=== PATIENT | female | born 1955 | race Caucasian/White ===

== ENCOUNTER 2018-08-11 18:17 | Emergency (ER) | payer MEDICAID, OTHER ==
[~2018-08-11] VITALS: Ht 160 cm; Wt 59.0 kg
[2018-08-11] MEDS ORDERED: ACETAMINOPHEN 500 MG TAB PO ONE (18:45)
[2018-08-11] MEDS ORDERED: KETOROLAC TROMETH 30 MG/ML 1ML VIAL IV ONE (19:00)
[2018-08-11] MEDS ORDERED: methylPREDNISolone SOD SUCC 125 MG/2 ML VL IV ONE (19:00)
[2018-08-11] MEDS ORDERED: diphenhdrAMINE HCL 50 MG/1 ML VL IV ONE (19:00)
[2018-08-11] MEDS ORDERED: DexAMETHasone SOD PHOS 10MG/1ML VIAL INJ IM ONE (20:15)
[2018-08-11 20:50] LABS: Basophils # (auto) 0 uL; Basophils % (auto) 0.3 % (0.0-2.0); Eosinophils # (auto) 0 uL; Eosinophils % (auto) 0.3 % (0.0-7.0); Hematocrit 40.2 % (36.0-46.0); Hemoglobin 13.1 g/dL (12.2-16.2); Lymphocytes # (auto) 1.4 uL; Lymphocytes % (auto) 10.3 % (10.0-50.0); Mean Corpuscular Hgb Conc. 32.6 g/dL (32.0-36.0); Mean Corpuscular Volume 88.7 fL (80.0-100.0); Monocytes # (auto) 0.6 uL; Monocytes % (auto) 4.3 % (0.0-12.0); Neutrophils # (auto) 11.7 uL; Neutrophils % (auto) 84.8 % (37.0-80.0); Nucleated Red Blood Cells % 0.1 %; Platelet Count (auto) 235 10^3/uL (140-450); Red Blood Cells 4.53 10^6/uL (4.0-5.20); Red Cell Distribution Width 14.8 % (11.8-14.3); White Blood Cell 13.7 10^3/uL (4.4-10.8)
[2018-08-11 20:58] VITALS: BP 140/81
[2018-08-11 21:06] LABS: Alanine Aminotransferase 17 U/L (13-56); Albumin 3.4 g/dL (3.4-5.0); Anion Gap 8 (5-15); Aspartate Aminotransferase 16 U/L (15-37); BUN/Creatinine Ratio 10.7; Blood Urea Nitrogen 9 mg/dL (7-18); Calcium 8.8 mg/dL (8.5-10.1); Carbon Dioxide 25 mmol/L (21-32); Chloride 101 mmol/L (98-107); GFR African American 89 mL/min; GFR Non-African American 74 mL/min; Glucose 104 mg/dL (74-106); Sodium 134 mmol/L (136-145)
[2018-08-11 21:12] LABS: Alkaline Phosphatase 130 U/L (45-117); Bilirubin, Total 0.5 mg/dL (0.2-1.0); Total Protein 7.1 g/dL (6.4-8.2)
== END 2018-08-11 21:13 | disposition home or self-care (01) ==
LOC: EDBD 18:17 → ER 18:21
DX: T78.40XA Allergy, unspecified, initial encounter (principal); R51 Headache; X58.XXXA Exposure to other specified factors, initial encounter
CPT/HCPCS: 36415; 80053; 83605; 84484; 85025; 87040; 94761; 96372; 96374; 96375; 99283; J1100; J1200; J1885; J2930

== ENCOUNTER 2023-07-21 14:16 | Emergency (ER) | payer OTHER ==
[2023-07-21 14:55] VITALS: PULSE 78; RESP 12; O2SAT 95
[2023-07-21 15:30] VITALS: BP 115/71; PULSE 62; RESP 11; O2SAT 95
== END 2023-07-21 15:46 | disposition left against medical advice (07) ==
LOC: EDBD 14:16 → ER 14:16
DX: R53.1 Weakness (principal); F17.210 Nicotine dependence, cigarettes, uncomplicated; W18.39XA Other fall on same level, initial encounter; Y93.89 Activity, other specified; Y92.89 Other specified places as the place of occurrence of the external cause; Y99.8 Other external cause status
CPT/HCPCS: 70450; 93005

== ENCOUNTER 2023-11-06 00:17 | Emergency (ER) | payer OTHER ==
[~2023-11-06] VITALS: Ht 167.6 cm; Wt 63.1 kg
[2023-11-06 01:15] VITALS: PULSE 88; RESP 16; O2SAT 98
[2023-11-06] MEDS: MORPHINE SULFATE 4 MG/ML SYR/VIAL IV ONE (01:56)
[2023-11-06] MEDS: ONDANSETRON HCL 4 MG/2 ML VIAL IV ONE (01:57)
[2023-11-06] MEDS: KETAMINE 50mg/ML 10ml Vial (500mg/10ml) IV ONE (03:12)
[2023-11-06 03:30] VITALS: BP 172/100; PULSE 96; RESP 13; TEMP 98.4; O2SAT 99
[2023-11-06] MEDS ORDERED: ACET-1304 PO (03:56)
[2023-11-06] MEDS ORDERED: IBUP-1456 PO (03:56)
== END 2023-11-06 04:49 | disposition home or self-care (01) ==
LOC: ER 00:17 → EDBD 00:17 → ER 04:49
DX: S43.015A Anterior dislocation of left humerus, initial encounter (principal); F17.210 Nicotine dependence, cigarettes, uncomplicated; F12.10 Cannabis abuse, uncomplicated; Z85.9 Personal history of malignant neoplasm, unspecified; W01.0XXA Fall on same level from slipping, tripping and stumbling without subsequent striking against object, initial encounter; Y93.89 Activity, other specified; Y92.89 Other specified places as the place of occurrence of the external cause; Y99.8 Other external cause status
CPT/HCPCS: 23650; 73030; 96374; 96375; 99285; J2270; J2405; 96376

== ENCOUNTER 2023-11-12 01:50 | Emergency (ER) | payer OTHER ==
[~2023-11-12] VITALS: Ht 157.5 cm; Wt 80.0 kg
[~2023-11-12 01:50] MED LIST: ACET-1304 PO; IBUP-1456 PO
[2023-11-12 02:05] VITALS: PULSE 76; RESP 22; O2SAT 97
[2023-11-12] MEDS: MORPHINE SULFATE 4 MG/ML SYR/VIAL IV ONE ×2 (02:32→04:33)
[2023-11-12] MEDS: ONDANSETRON HCL 4 MG/2 ML VIAL IV ONE (02:32)
[2023-11-12] MEDS: ETOMIDATE (2MG/ML) 20ML VIAL IV ONE (05:17)
[2023-11-12 06:00] VITALS: BP 135/86; PULSE 75; RESP 12; O2SAT 94
== END 2023-11-12 07:11 | disposition home or self-care (01) ==
LOC: ER 01:50 → EDBD 01:50 → ER 07:11
DX: M24.412 Recurrent dislocation, left shoulder (principal); F17.210 Nicotine dependence, cigarettes, uncomplicated; F15.90 Other stimulant use, unspecified, uncomplicated; Z85.9 Personal history of malignant neoplasm, unspecified; Z79.899 Other long term (current) drug therapy
CPT/HCPCS: 23650; 73030; 96374; 99152; 99285; J2270; J2405

== ENCOUNTER 2025-05-01 20:15 | Inpatient (IN) | payer MEDICARE, OTHER ==
[~2025-05-01] VITALS: Ht 157.5 cm; Wt 69.1 kg
--- NOTE | 2025-05-01 20:50 | ED.PDOC ---
History of Present Illness HPI Comments 69-year-old female who is brought in by ambulance from private residence for chief complaint of altered mental status and cold exposure. Per EMS personnel report, patient was found outside her trailer altered on the floor, this evening. Initial temperature of 93.9 F. initial blood glucose of 131. Initial systolic blood pressure of 140. Patient was found in AFib RVR at a rate between 140/50 range. Patient is placed on non-rebreather. Further history is limited, due to patient's clinical presentation and absence of family/converting technician historians. REVIEW OF SYSTEMS: General: No fever, no chills, or fatigue HEENT: No sore throat, no earache, no congestion, no neck pain. Cardiac: No chest pain. No palpitations. Lungs: No shortness of breath, no cough. GI: No nausea, no vomiting, no diarrhea, no constipation, no abdominal pain : No dysuria, frequency, or urgency. No hematuria. Musculoskeletal: No joint pain , no joint swelling, no extremity edema. Skin: No rash, no itching. Neuro: Altered mental status (And as stated in HPI) PHYSICAL EXAM: General: Awake, alert and oriented. No acute distress. Skin: Skin cool to touch, dry and intact. Appropriate color for ethnicity. HEENT: The head is normocephalic and atraumatic. Conjunctivae are clear without exudates or hemorrhage. Sclera is non-icteric. Eyelids are normal in appearance without swelling or lesions. Oral mucosa is pink and moist Neck: The neck is supple with normal range of motion. No JVD. Cardiac: Rapid heart rate but irregular rhythm. No murmurs, gallops, or rubs are auscultated. Respiratory: No signs of respiratory distress. Lung sounds are clear in all lobes bilaterally without rales, rhonchi, or wheezes. Abdominal: Abdomen is soft, non-tender without distention, guarding or rigidity. Bowel sounds are present and normoactive in all four quadrants. Extremities: Lower extremities without edema. Neurological: Patient is lethargic, oriented to person, follows commands, and moving all 4 extremities spontaneously Chief Complaint: Cold Exposure Time Seen by MD: 20:39 Primary Care Provider: UNK Reviewed Notes: Nurses Notes, Laboratory Courier Notes, Medications, Allergies Allergies: Coded Allergies: NO KNOWN ALLERGIES (Unverified , 08/11/18) Home Meds Active Scripts Ibuprofen (Ibuprofen) 800 Mg Tab, 1 TAB PO Q8HP PRN, #30 TAB Prov:MIGUELINA SELF MD 11/06/23 Acetaminophen (Tylenol Extra Strength) 500 Mg Tab, 1000 MG PO Q6HP PRN, #30 TAB Prov:MIGUELINA SELF MD 11/06/23 Information Source: Emergency Med Personnel Mode of Arrival: EMS Severity: Moderate Timing: Hours Duration: Since onset Prehospital treatment: 12 Lead EKG, Accucheck, Parts Department Manager Past Medical History PAST MEDICAL HISTORY: Cancer Past Medical History (Other): Osteoporosis Surgical History: Surgical History (Other): Splenectomy, left hip replacement HARDWARE DEVELOPER History: Denies all HARDWARE DEVELOPER Hx Family History Family History: Unknown Social History Smoker: Cigarettes Alcohol: Occasionally Drugs: Marijuana Lives In: Home Was a procedure done? Was a procedure done?: No Differential Dx Considerations may include: Differential diagnosis considered includes but not limited to intracranial hemorrhage, stroke, head injury, seizure, metabolic disturbance, electrolyte imbalance, infection, substance intoxication, cold exposure, hypothermia, ps ychiatric cause, other systemic illness, other X-Ray, Labs, Meds, VS Vital Signs Date Time Temp Pulse Resp B/P (MAP) Pulse Ox O2 Delivery O2 Flow Rate FiO2 05/02/25 00:24 184/121 05/02/25 00:00 98.1 104 13 164/107 (126) 98 98.1 05/01/25 22:00 95.2 92 26 171/111 (131) 98 95.2 05/01/25 20:29 143 05/01/25 20:25 93.4 133 23 105/78 (87) 97 93.4 05/01/25 20:15 16 100 Non-Rebreather 10 N/A 05/01/25 20:15 94.0 138 16 144/67 100 94.0 Lab Test 05/02/25 00:17 05/01/25 22:15 05/01/25 22:01 05/01/25 21:55 Range/Units Troponin I High Sensitivity 81 *H 59 *H </=34 ng/L Influenza Type A Antigen Negative Negative Influenza Type B Antigen Negative Negative SARS-CoV-2 Antigen (Rapid) Negative NEGATIVE Urine Color Colorless Yellow Urine Clarity Clear Clear Urine pH 6.5 5.0-9.0 Urine Specific [place] 1.008 1.001-1.035 Urine Protein Trace H Negative Urine Ketones Negative Negative Urine Blood 2+ H Negative /uL Urine Nitrite Negative Negative Urine Bilirubin Negative Negative Urine Urobilinogen Normal Negative mg/dL Urine Leukocyte Esterase Negative Negative /uL Urine RBC 1 0 - 4 /hpf Urine Microscopic WBC 1 0-5 /HPF Urine Squamous Epithelial Cells Few <5 /hpf Urine Bacteria Few H None Seen /hpf Urine Glucose 2+ H Normal mg/dL Urine Opiates Screen Neg NEGATIVE Urine Fentanyl Screen Pos NEGATIVE Urine Barbiturates Screen Neg NEGATIVE Urine Phencyclidine Screen Neg NEGATIVE Urine Amphetamines Screen Pos NEGATIVE Urine Benzodiazepines Screen Neg NEGATIVE Urine Cocaine Screen Neg NEGATIVE Urine Cannabinoids Screen Neg NEGATIVE Test 05/01/25 21:10 05/01/25 20:45 Range/Units White Blood Count 13.0 H 4.4-10.8 10^3/uL Red Blood Count 4.67 4.0-5.20 10^6/uL Hemoglobin 13.0 12.2-16.2 g/dL Hematocrit 40.8 36.0-46.0 % Mean Corpuscular Volume 87.3 80.0-100.0 fL Mean Corpuscular Hemoglobin 27.9 L 28.0-32.0 pg Mean Corpuscular Hemoglobin Concent 32.0 32.0-36.0 g/dL Red Cell Distribution Width 16.0 H 11.8-14.3 % Platelet Count 238 140-450 10^3/uL Mean Platelet Volume 9.4 6.9-10.8 fL Neutrophils (%) (Auto) 85.5 H 37.0-80.0 % Lymphocytes (%) (Auto) 9.3 L 10.0-50.0 % Monocytes (%) (Auto) 4.5 0.0-12.0 % Eosinophils (%) (Auto) 0.5 0.0-7.0 % Basophils (%) (Auto) 0.2 0.0-2.0 % Neutrophils # (Auto) 11.1 H 1.6-8.6 10 ^3/uL Lymphocytes # (Auto) 1.2 0.4-5.4 10 ^3/uL Monocytes # (Auto) 0.6 0-1.3 10 ^3/uL Eosinophils # (Auto) 0.1 0-0.8 10 ^3/uL Basophils # (Auto) 0 0-0.2 10 ^3/uL Nucleated Red Blood Cells 0.0 % Sodium Level 142 136-145 mmol/L Potassium Level 3.6 3.5-5.1 mmol/L Chloride Level 106 98-107 mmol/L Carbon Dioxide Level 25 20-31 mmol/L Anion Gap 11 5-15 Blood Urea Nitrogen 16 9-23 mg/dL Creatinine 1.10 H 0.550-1.02 mg/dL Glomerular Filtration Rate Calc 55 >90 mL/min BUN/Creatinine Ratio 14.5 10.0-20.0 Serum Glucose 100 74-106 mg/dL Lactic Acid Level 1.8 0.4-2.0 mmol/L Calcium Level 8.9 8.7-10.4 mg/dL Magnesium Level 2.0 1.6-2.6 mg/dL Total Bilirubin 0.4 0.2-1.0 mg/dL Aspartate Amino Transferase (AST) 735 H 13-40 U/L Alanine Aminotransferase (ALT) 579 H 7-40 U/L Alkaline Phosphatase 131 H 46-116 U/L Troponin I High Sensitivity 39 *H </=34 ng/L B-Type Natriuretic Peptide 28.90 0-100 pg/mL Total Protein 6.9 5.7-8.2 g/dL Albumin 4.3 3.2-4.8 g/dL Lipase 37 12-53 U/L Thyroid Stimulating Hormone (TSH) 12.88 H 0.55-4.78 uIU/mL Plasma/Serum Blood Alcohol < 3.0 <10 mg/dL Blood Gas Specimen Type Arterial Blood Gas Sample Site Right radial Blood Gas Patient Temperature 37.0 Arterial Blood Date Drawn [id number] Arterial Blood pH 7.337 L 7.350-7.450 Arterial Blood Partial Pressure CO2 44.5 32.0-45.0 mmHg Arterial Blood Partial Pressure O2 145.8 H 83.0-108.0 mmHg Arterial Blood HCO3 23.3 21.0-28.0 mmol/L Arterial Blood Oxygen Saturation 98.8 H 94.0-98.0 % Arterial Blood Base Excess -2.6 L -2.0-3.0 mmol/L Arterial Blood Oxyhemoglobin 96.5 94.0-98.0 % Arterial Blood Carboxyhemoglobin 1.7 H 0.5-1.5 % Arterial Blood Methemoglobin 0.6 0.0-1.5 % Arterial Blood Deoxyhemoglobin 1.2 0.0-5.0 % Pankaj Test Yes Blood Gas Total Hemoglobin 13.70 12.0-16.0 g/dL Blood Gas Liter Flow 15.00 Blood Gas Modality Mask - nrb Blood Gas Spontaneous Rate 18 FiO2 % 100.0 Current Medications Medications (Trade) Dose Ordered Sig/Navi Route Start Time Stop Time Status Last Admin Sodium Chloride 1,000 ml @ 130 mls/hr Q7H42M ONCE IV 05/01/25 21:00 05/02/25 04:41 05/01/25 22:10 Sodium Chloride 1,000 ml @ 1,000 mls/hr Q1H ONCE IV 05/01/25 21:00 05/01/25 21:59 DC 05/01/25 21:05 Hydralazine HCl (Apresoline Injection) 10 mg ONCE ONCE IV 05/02/25 00:00 05/02/25 00:01 DC 05/02/25 00:24 [place] [id number] Ph: [phone] DIAGNOSTIC IMAGING Diagnostic Imaging Report : [id number] Signed PATIENT: KING YA ACCT: [id number] UNIT: [id number] : 1955 LOC: ER ROOM / BED: / AGE / SEX: 69 / F ADM STATUS: REG ER SERVICE 47 ORDERING PHYSICIAN: GRISELDA MADDEN MD PROCEDURE(s): HWOCT - HEAD WITHOUT CONTRAST REASON: Altered mental status ORDER NUMBER(s): [id number], ACCESSION NUMBER(s): [id number] CLINICAL HISTORY: Altered mental status TECHNIQUE: Helical imaging carried out from skull base to vertex without intravenous contrast. This exam was performed according to our departmental dose optimization program. Up-to-date CT equipment and radiation dose reduction techniques are utilized as appropriate. CTDIVol: 55.02 mGy DLP: 974.33 mGy-cm WID: COMPARISON: CT HEAD WITHOUT CONTRAST on DOS: 07/21/23 FINDINGS: Mild generalized cerebral volume loss with concordant prominence of the subarachnoid spaces and ventricles. Mild patchy low attenuation in the cerebral white matter consistent with nonspecific white matter disease. There is mild calcified plaque in the intracranial internal carotid arteries. There is no midline shift or mass effect. The mrashall white matter interfaces are maintained. The basal cisterns are patent. There is no evidence of acute intracranial hemorrhage or extra-axial fluid collection. The mastoid air cells and visualized paranasal sinuses are well-aerated. IMPRESSION: 1. No acute intracranial abnormality. 2. Mild cerebral volume loss and mild chronic microvascular ischemic change. ATED BY: BILLY ALEMAN MD DICTATED DATE/TIME: 05/01/252140 SIGNED BY: BILLY ALEMAN MD SIGNED DATE/TIME: 05/01/252140 CC: [place] [id number] Ph: [phone] DIAGNOSTIC IMAGING Diagnostic Imaging Report : [id number] Signed PATIENT: KING YA ACCT: [id number] UNIT: [id number] : 1955 LOC: ER ROOM / BED: / AGE / SEX: 69 / F ADM STATUS: REG ER SERVICE 47 ORDERING PHYSICIAN: GRISELDA MADDEN MD PROCEDURE(s): CXR1 - CHEST XRAY 1 VIEW REASON: AMS ORDER NUMBER(s): [id number], ACCESSION NUMBER(s): [id number] CHEST RADIOGRAPH INDICATION: AMS TECHNIQUE: Single frontal view of the chest was obtained COMPARISON: None FINDINGS/IMPRESSION: Rotated examination. Prominent interstitial markings. Mild enlargement of the cardiomediastinal silhouette, with probable tortuous aorta. No pleural effusion or pneumothorax. No acute osseous abnormality. ATED BY: WILLA MEADE MD DICTATED DATE/TIME: 05/01/252107 SIGNED BY: WILLA MEADE MD SIGNED DATE/TIME: 05/01/252107 CC: Time of 1ST Reevaluation: 20:49 Reevaluation 1ST: Unchanged Patient Education/Counseling: Need For Follow Up Family Education/Counseling: No Family Present SEPSIS Sepsis Screen Physician Orders Abg W/ Co-Ox (05/01/25 20:36) Chest Xray 1 View (05/01/25 20:48) Electrocardigram (05/01/25 20:48) Blood Culture (05/01/25 20:48) Saline Lock (05/01/25 20:48) Straight Cath. (05/01/25 ) Electrocardigram (05/01/25 21:48) Electrocardigram (05/01/25 23:48) Sodium Chloride 0.9% (05/01/25 21:00) Vital Signs Q1HR (05/01/25 20:48) Saline Lock (05/01/25 20:48) Parts Department Manager (05/01/25 ) Rectal/Core Temps Only (05/01/25 20:48) Notify Md If Abnormal Vs (05/01/25 20:48) Insert Sanches Catheter QSHIFT (05/01/25 20:48) Head Without Contrast (05/01/25 20:48) Bear Hugger For Temp <94.5f (05/01/25 20:48) Vital Signs Date Time Temp Pulse Resp B/P (MAP) Pulse Ox O2 Delivery O2 Flow Rate FiO2 05/02/25 00:24 184/121 05/02/25 00:00 98.1 104 13 164/107 (126) 98 98.1 05/01/25 22:00 95.2 92 26 171/111 (131) 98 95.2 05/01/25 20:29 143 05/01/25 20:25 93.4 133 23 105/78 (87) 97 93.4 05/01/25 20:15 16 100 Non-Rebreather 10 N/A 05/01/25 20:15 94.0 138 16 144/67 100 94.0 Laboratory Tests Test 05/01/25 21:10 Lactic Acid Level 1.8 mmol/L (0.4-2.0) White Blood Count 13.0 10^3/uL (4.4-10.8) H Medications Medications Dose Ordered Sig/Navi Route Start Time Stop Time Status Last Admin Dose Admin Hydralazine HCl 10 mg ONCE ONCE IV 05/02/25 00:00 05/02/25 00:01 DC 05/02/25 00:24 Sodium Chloride 1,000 ml @ 130 mls/hr Q7H42M ONCE IV 05/01/25 21:00 05/02/25 04:41 05/01/25 22:10 Sodium Chloride 1,000 ml @ 1,000 mls/hr Q1H ONCE IV 05/01/25 21:00 05/01/25 21:59 DC 05/01/25 21:05 Departure 1 Departure Time of Disposition: 21:52 Impression: Primary Impression: Altered mental status Additional Impression: Hypothermia Disposition: 09 ADMITTED INPATIENT Comments 69-year-old female was brought in by EMS, she was found outside, abdominal on the ground called. Patient was hypothermic on arrival to the emergency department in AFib with RVR. Heart rate improved spontaneously with rewarming. CT head negative for acute process. Patient admitted to hospitalist service for further treatment, evaluation and monitoring. MDM: Extensive evaluation was performed in attempt to identify or rule out: (See differential diagnosis section) The following tests were ordered, and results were reviewed by me and discussed with patient: (See diagnostic results section) The following test were independently interpreted by me: Troponin, UA, TSH levels, rapid influenza a and B and COVID-19 antigen Xin test, magnesium, lipase, CMP, drug screen, lactic acid reflux, CBC, blood alcohol, BNP, blood culture I reviewed and agreed with the following test results read by other providers: CT head without contrast, chest x-ray I reviewed the following notes from the pt's past medical encounters: N/A Additional information was gathered from interviewing the following independent historians: EMS personnel Discussion of management or test interpretation with external physician/other qualified health health care aide: N/A Addressed [ ]one or more chronic illnesses with severe exacerbation, progression, or side effects of treatment: [ ]an acute or chronic illness that poses a threat to life or bodily function: [ ] Decision regarding hospitalization or escalation of hospital level of care: Risk and benefits of admission for further treatment of patient's condition was considered. Due to patient's current clinical condition, high risk of decline and poor outcome if discharged and need for further inpatient management and monitoring, patient will be admitted to the hospital. Drug therapy requiring intensive monitoring for toxicity: N/A Parenteral controlled substances: N/A Decision regarding elective major surgery with identified patient or procedure risk factors: N/A Decision regarding emergency major surgery: N/A Decision not to resuscitate or to de-escalate care because of poor prognosis: N/A Diagnosis or treatment significantly limited by social determinants of health: N/A Decision regarding hospitalization or escalation of hospital level of care: Risks and benefits of admission for further treatment of patient's condition was considered however due to patient's stable condition patient will be discharged to follow up closely or return to care for worsening of condition or inability to follow up. Critical Care Note Critical Care Time?: No Stability Stability form required: No Heart Score Heart Score: Heart Score Response (Comments) Value History N/A 0 EKG N/A 0 Age N/A 0 Risk Factors N/A 0 Troponin N/A 0 Total 0 I personally scribed for GRISELDA MADDEN MD ([email or web address]) on 05/01/25 at 20:50. Electronically submitted by Jose Hull ([email or web address]). I personally scribed for GRISELDA MADDEN MD ([email or web address]) on 05/02/25 at 04:13. Electronically submitted by Jose Hull ([email or web address]). GRISELDA MADDEN MD May 01, 2025 20:50
[2025-05-01] MEDS: SODIUM CHLORIDE 0.9% 1,000 ML IV ONE ×2 (21:05→22:10)
[2025-05-01 21:09] LABS: Base Excess -2.6 mmol/L (-2.0-3.0)
--- NOTE | 2025-05-01 21:11 | DVH ---
CHEST RADIOGRAPH INDICATION: AMS TECHNIQUE: Single frontal view of the chest was obtained COMPARISON: None FINDINGS/IMPRESSION: Rotated examination. Prominent interstitial markings. Mild enlargement of the cardiomediastinal silhouette, with probable tortuous aorta. No pleural effusion or pneumothorax. No acute osseous abnormality.
[2025-05-01 21:42] LABS: Hematocrit 40.8 % (36.0-46.0); Hemoglobin 13.0 g/dL (12.2-16.2); Mean Corpuscular Hemoglobin 27.9 pg (28.0-32.0); Mean Corpuscular Volume 87.3 fL (80.0-100.0); Nucleated Red Blood Cells % 0.0 %
--- NOTE | 2025-05-01 21:44 | DVH ---
CLINICAL HISTORY: Altered mental status TECHNIQUE: Helical imaging carried out from skull base to vertex without intravenous contrast. This exam was performed according to our departmental dose optimization program. Up-to-date CT equipment and radiation dose reduction techniques are utilized as appropriate. CTDIVol: 55.02 mGy DLP: 974.33 mGy-cm WID: COMPARISON: CT HEAD WITHOUT CONTRAST on DOS: 07/21/23 FINDINGS: Mild generalized cerebral volume loss with concordant prominence of the subarachnoid spaces and ventricles. Mild patchy low attenuation in the cerebral white matter consistent with nonspecific white matter disease. There is mild calcified plaque in the intracranial internal carotid arteries. There is no midline shift or mass effect. The marshall white matter interfaces are maintained. The basal cisterns are patent. There is no evidence of acute intracranial hemorrhage or extra-axial fluid collection. The mastoid air cells and visualized paranasal sinuses are well-aerated. IMPRESSION: 1. No acute intracranial abnormality. 2. Mild cerebral volume loss and mild chronic microvascular ischemic change.
[2025-05-01 21:50] LABS: Albumin 4.3 g/dL (3.2-4.8); Anion Gap 11 (5-15); BUN/Creatinine Ratio 14.5 (10.0-20.0); Bilirubin, Total 0.4 mg/dL (0.2-1.0); Blood Urea Nitrogen 16 mg/dL (9-23); Calcium 8.9 mg/dL (8.7-10.4); Carbon Dioxide 25 mmol/L (20-31); Chloride 106 mmol/L (98-107); Glucose 100 mg/dL (74-106); Magnesium 2.0 mg/dL (1.6-2.6); Potassium 3.6 mmol/L (3.5-5.1); Sodium 142 mmol/L (136-145); Total Protein 6.9 g/dL (5.7-8.2)
[2025-05-01 21:54] LABS: Alanine Aminotransferase 579 U/L (7-40); Alkaline Phosphatase 131 U/L (46-116)
[2025-05-01 22:07] LABS: Lipase 37 U/L (12-53)
[2025-05-01 22:13] LABS: Urine Protein, UAD TRACE (Negative)
[2025-05-01 22:29] LABS: Opiate Scree,Urine Neg (NEGATIVE)
[2025-05-01 22:39] LABS: Amphetamine Screen, Urine Pos (NEGATIVE); Barbiturate Scree,Urine Neg (NEGATIVE); Benzodiazephine Screen, Urine Neg (NEGATIVE); Cannabinoid Screen, Urine Neg (NEGATIVE); Cocaine Screen, Urine Neg (NEGATIVE); Phencyclidine Screen, Urine Neg (NEGATIVE)
[2025-05-01 22:57] LABS: COVID19 ANTIGEN SOFIA FIA NEGATIVE (NEGATIVE)
[2025-05-02] VITALS (11 sets, daily range): BP systolic 136–177; BP diastolic 86–117; PULSE 72–99; RESP 16–19; TEMP 97.5–98; O2SAT 95–100
[2025-05-02] MEDS: hydrALAZINE HCL 20 MG/ML VL IV ONE (00:24)
[2025-05-02] MEDS: METOPROLOL TARTRATE 25 MG TAB PO SCH (00:45)
[2025-05-02] MEDS ORDERED: MORPHINE SULFATE INJ 2 MG/ml SYRG IV PRN (00:45)
[2025-05-02] MEDS ORDERED: NITROGLYCERIN 0.4 MG SL TAB SL PRN (00:45)
[2025-05-02] MEDS ORDERED: ONDANSETRON HCL 4 MG/2 ML VIAL IV PRN (00:45)
[2025-05-02] MEDS: SODIUM CHLORIDE 0.9% 1,000 ML IV ONE (01:12)
--- NOTE | 2025-05-02 01:18 | DVHHP2 ---
Admitting Diagnosis: ALOC, Elevated troponin, Transaminitis, Substance abuse History of Present Illness History Source: Patient Exam Limitations: Clinical condition HPI This is Nery Rivera a 69-year-old female who was brought in by EMS, she was found outside, abdominal on the ground. Limited HPI due to patient mental status. per ED notes "Patient was hypothermic on arrival to the emergency department in AFib with RVR. Heart rate improved spontaneously with rewarming. CT head negative for acute process." Patient currently alert and oriented x2, reports left sided chest pain with shortness of breath. Patient denies any substance use, reports she doesn't remember what happened. Patient denies headache, dizziness, fevers, chills. Patient admitted for further evaluation. Home Meds Active Scripts Ibuprofen (Ibuprofen) 800 Mg Tab, 1 TAB PO Q8HP PRN, #30 TAB Prov:MIGUELINA SELF MD 11/06/23 Acetaminophen (Tylenol Extra Strength) 500 Mg Tab, 1000 MG PO Q6HP PRN, #30 TAB Prov:MIGUELINA SELF MD 11/06/23 Past Medical History Others Tongue Cancer Past Surgical History: Total hip replacement Smoker: Positive Alocohol: Occassional Drugs: Marijuana, Amphetimines, Other (Fentanyl ) Lives with: Alone Domestic Violence: Neg Review of Systems Constitutional: No symptom reported Ears, Nose, & Throat: No symptom reported Eyes: No symptom reported Pulmonary/Respiratory: Dyspnea Cardiovascular: Chest Pain Gastrointestinal: No symptom reported Genitourinary: No symptom reported Musculoskeletal: No symptom reported Skin: No symptom reported Psychiatric: No symptom reported Endocrine: No symptom reported Hemotologic/Lymphatic: No symptom reported H&P Exam Vital Signs Vital Signs Date Time Temp Pulse Resp B/P (MAP) Pulse Ox O2 Delivery O2 Flow Rate FiO2 05/02/25 00:45 103 132/87 05/01/25 20:15 16 100 Non-Rebreather 10 N/A 05/01/25 20:15 94.0 94.0 General Appeara: Well developed Head Exam: Normal inspection Neck Exam: Normal inspection, Non-tender, Normal alignment Eye Exam: bilateral eye Normal inspection, bilateral eye PERRL, bilateral eye EOMI Ear Exam: bilateral ear Auricle normal Nasal Exam: Normal inspection Mouth: Normal Inspection Pulmonary/Respiratory: Normal inspection, Normal breath sounds, Chest non- tender, Lungs clear Cardiovascular/Chest: Normal inspection, Regular rate, Normal Rhythm Peripheral Pulses: 2+ dorsalis pedis (R), 2+ dorsalis pedis (L), 2+ Radial (R), 2+ Radial (L) Abdominal Exam: Normal bowel sounds, Soft SENIOR SALES OPERATIONS MANAGER Exam: Normal hearing, Normal speech, PERRL Neuro/Mental St: Alert, Oriented (x2) Appearance: Disheveled Eye contact/ Speech: Cooperative, Avoids eye contact Skin Exam: Normal inspection, Normal color, Warm/dry SEPSIS Sepsis Screen Date sepsis recognized/suspect: May 01, 2025 Time Sepsis recognized/suspect: 2014 Recent Procedure: No On Antibiotic Therapy: No Respiratory Rate >20: No Heart Rate >90: Yes Temp<36 C (96.8 F) or >38.3 C: Yes SBP <90 or MAP <65 mmHG: No New Acute Mental Status Change: Yes Is the patient on CPAP, BIPAP,: No Physician Orders Abg W/ Co-Ox (05/01/25 20:36) Chest Xray 1 View (05/01/25 20:48) Electrocardigram (05/01/25 20:48) Blood Culture (05/01/25 20:48) Saline Lock (05/01/25 20:48) Straight Cath. 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 (05/01/25 ) Rectal/Core Temps Only (05/01/25 20:48) Notify Md If Abnormal Vs (05/01/25 20:48) Insert Sanches Catheter QSHIFT (05/01/25 20:48) Head Without Contrast (05/01/25 20:48) Bear Hugger For Temp <94.5f (05/01/25 20:48) Admit (05/02/25 00:34) Troponin-I Hs (05/02/25 06:00) Troponin-I Hs (05/02/25 14:00) Troponin-I Hs (05/02/25 22:00) Comprehensive Metabolic Panel (05/02/25 05:00) Comprehensive Metabolic Panel (05/03/25 05:00) Comprehensive Metabolic Panel (05/04/25 05:00) Complete Blood Count (05/02/25 05:00) Complete Blood Count (05/03/25 05:00) Complete Blood Count (05/04/25 05:00) Thyroxine (T4) (05/02/25:34) Full Code (05/02/25:34) * Cardiology Consult (05/02/25:34) * Gi D[facility] Field Sales Trainer (05/02/25:34) Echo 2d Mode Cardiac Dop (05/02/25:34) Nitroglycerin Sublingual (Ntrostat Subli (05/02/25 00:45) Morphine Sulfate Injection (05/02/25 00:45) Stat Ekg For Chest Pain (05/02/25:34) Notify Md Of Changes From Base (05/02/25:) Organ Fixer For 24 Hours (05/02/25:34) Emergency Dysrhythmia Protocol (05/02/25:34) Rhythm Strips Once Every Shift (05/02/25:34) Oxygen By Nasal Cannula (05/02/25:34) Hydralazine Injection (Apresoline Inject (05/02/25 00:45) Ondansetron Hcl (Zofran) (05/02/25 00:45) Metoprolol Tartrate Tablet (Lopressor Ta (05/02/25 00:45) Acetaminophen Tablet (Tylenol Tablet) (05/02/25 00:45) Pantoprazole (Protonix) (05/02/25 10:00) Enoxaparin Sodium (Lovenox) (05/02/25 10:00) Atorvastatin (Lipitor) (05/02/25 22:00) Sodium Chloride 0.9% (05/02/25 01:00) Fall Risk Precautions In Place QSHIFT (05/02/25 01:08) Vital Signs Date Time Temp Pulse Resp B/P (MAP) Pulse Ox O2 Delivery O2 Flow Rate FiO2 05/02/25 00:45 103 132/87 05/02/25 00:24 184/121 05/01/25 20:29 143 05/01/25 20:15 16 100 Non-Rebreather 10 N/A 05/01/25 20:15 94.0 138 16 144/67 100 94.0 Laboratory Tests Test 05/01/25 21:10 Lactic Acid Level 1.8 mmol/L (0.4-2.0) White Blood Count 13.0 10^3/uL (4.4-10.8) H Medications Medications Dose Ordered Sig/Navi Route Start Time Stop Time Status Last Admin Dose Admin Hydralazine HCl 10 mg ONCE ONCE IV 05/02/25 00:00 05/02/25 00:01 DC 05/02/25 00:24 10 MG Sodium Chloride 1,000 ml @ 130 mls/hr Q7H42M ONCE IV 05/01/25 21:00 05/02/25 04:41 05/01/25 22:10 130 MLS/HR Sodium Chloride 1,000 ml @ 1,000 mls/hr Q1H ONCE IV 05/01/25 21:00 05/01/25 21:59 DC 05/01/25 21:05 1,000 MLS/HR Labs/Xrays Labs Test 05/02/25 00:17 05/01/25 22:01 05/01/25 21:55 05/01/25 21:10 Range/Units Troponin I High Sensitivity 81 *H </=34 ng/L Influenza Type A Antigen Negative Negative Influenza Type B Antigen Negative Negative SARS-CoV-2 Antigen (Rapid) Negative NEGATIVE Urine Color Colorless Yellow Urine Clarity Clear Clear Urine pH 6.5 5.0-9.0 Urine Specific [place] 1.008 1.001-1.035 Urine Protein Trace H Negative Urine Ketones Negative Negative Urine Blood 2+ H Negative /uL Urine Nitrite Negative Negative Urine Bilirubin Negative Negative Urine Urobilinogen Normal Negative mg/dL Urine Leukocyte Esterase Negative Negative /uL Urine RBC 1 0 - 4 /hpf Urine Microscopic WBC 1 0-5 /HPF Urine Squamous Epithelial Cells Few <5 /hpf Urine Bacteria Few H None Seen /hpf Urine Glucose 2+ H Normal mg/dL Urine Opiates Screen Neg NEGATIVE Urine Fentanyl Screen Pos NEGATIVE Urine Barbiturates Screen Neg NEGATIVE Urine Phencyclidine Screen Neg NEGATIVE Urine Amphetamines Screen Pos NEGATIVE Urine Benzodiazepines Screen Neg NEGATIVE Urine Cocaine Screen Neg NEGATIVE Urine Cannabinoids Screen Neg NEGATIVE White Blood Count 13.0 H 4.4-10.8 10^3/uL Red Blood Count 4.67 4.0-5.20 10^6/uL Hemoglobin 13.0 12.2-16.2 g/dL Hematocrit 40.8 36.0-46.0 % Mean Corpuscular Volume 87.3 80.0-100.0 fL Mean Corpuscular Hemoglobin 27.9 L 28.0-32.0 pg Mean Corpuscular Hemoglobin Concent 32.0 32.0-36.0 g/dL Red Cell Distribution Width 16.0 H 11.8-14.3 % Platelet Count 238 140-450 10^3/uL Mean Platelet Volume 9.4 6.9-10.8 fL Neutrophils (%) (Auto) 85.5 H 37.0-80.0 % Lymphocytes (%) (Auto) 9.3 L 10.0-50.0 % Monocytes (%) (Auto) 4.5 0.0-12.0 % Eosinophils (%) (Auto) 0.5 0.0-7.0 % Basophils (%) (Auto) 0.2 0.0-2.0 % Neutrophils # (Auto) 11.1 H 1.6-8.6 10 ^3/uL Lymphocytes # (Auto) 1.2 0.4-5.4 10 ^3/uL Monocytes # (Auto) 0.6 0-1.3 10 ^3/uL Eosinophils # (Auto) 0.1 0-0.8 10 ^3/uL Basophils # (Auto) 0 0-0.2 10 ^3/uL Nucleated Red Blood Cells 0.0 % Sodium Level 142 136-145 mmol/L Potassium Level 3.6 3.5-5.1 mmol/L Chloride Level 106 98-107 mmol/L Carbon Dioxide Level 25 20-31 mmol/L Anion Gap 11 5-15 Blood Urea Nitrogen 16 9-23 mg/dL Creatinine 1.10 H 0.550-1.02 mg/dL Glomerular Filtration Rate Calc 55 >90 mL/min BUN/Creatinine Ratio 14.5 10.0-20.0 Serum Glucose 100 74-106 mg/dL Lactic Acid Level 1.8 0.4-2.0 mmol/L Calcium Level 8.9 8.7-10.4 mg/dL Magnesium Level 2.0 1.6-2.6 mg/dL Total Bilirubin 0.4 0.2-1.0 mg/dL Aspartate Amino Transferase (AST) 735 H 13-40 U/L Alanine Aminotransferase (ALT) 579 H 7-40 U/L Alkaline Phosphatase 131 H 46-116 U/L B-Type Natriuretic Peptide 28.90 0-100 pg/mL Total Protein 6.9 5.7-8.2 g/dL Albumin 4.3 3.2-4.8 g/dL Lipase 37 12-53 U/L Thyroid Stimulating Hormone (TSH) 12.88 H 0.55-4.78 uIU/mL Plasma/Serum Blood Alcohol < 3.0 <10 mg/dL Test 05/01/25 20:45 Range/Units Blood Gas Specimen Type Arterial Blood Gas Sample Site Right radial Blood Gas Patient Temperature 37.0 Arterial Blood Date Drawn [id number] Arterial Blood pH 7.337 L 7.350-7.450 Arterial Blood Partial Pressure CO2 44.5 32.0-45.0 mmHg Arterial Blood Partial Pressure O2 145.8 H 83.0-108.0 mmHg Arterial Blood HCO3 23.3 21.0-28.0 mmol/L Arterial Blood Oxygen Saturation 98.8 H 94.0-98.0 % Arterial Blood Base Excess -2.6 L -2.0-3.0 mmol/L Arterial Blood Oxyhemoglobin 96.5 94.0-98.0 % Arterial Blood Carboxyhemoglobin 1.7 H 0.5-1.5 % Arterial Blood Methemoglobin 0.6 0.0-1.5 % Arterial Blood Deoxyhemoglobin 1.2 0.0-5.0 % Pankaj Test Yes Blood Gas Total Hemoglobin 13.70 12.0-16.0 g/dL Blood Gas Liter Flow 15.00 Blood Gas Modality Mask - nrb Blood Gas Spontaneous Rate 18 FiO2 % 100.0 Assessment/Plan Problem List: (1) Altered mental status (2) Substance abuse (3) Elevated troponin (4) Transaminitis (5) Hypothermia Plan This is a 69 yo female with known history of substance abuse, tongue cancer, osteoporosis, left hip replacement who presents to the hospital found down and with ALOC. Patient found to have 1. ALOC 2. Elevated troponin levels 3. Transaminitis 4. Afib with RVR resolved 5. Substance abuse 6. Hypertension 7. History of tongue cancer Plan Admit Telemetry unit Cardiology consultation, 2D echo, serial troponin levels, statin Gastroenterology consultation DVT ppx GI ppx Antihypertensive for optimal blood pressure management EKG as needed Monitor CMP, CBC Fall Precautions Discussed all above with patient who verbalizes agreement and understanding of care plan. All questions were answered. Discussed with supervising MD. Plan discussed with: Patient, Other Code Visit Code Visit Total Time (mins): 45 Additional Comments Additional Comments Additional Comments Patient's chart is reviewed and patient is seen and evaluated and admitted by nurse practitioner postpartum rn. I agree with the her evaluation, document ation, assessment and care plan as outlined. Patient is seen and evaluated by me in person this afternoon and discussed care plan with the patient and nurse at bedside. YOUNG MALLORY May 02, 2025 01:18 VJ THOMPSON MD May 02, 2025 12:49
[2025-05-02] MEDS: ENOXAPARIN SOD 100 MG/1 ML SYRINGE SC SCH (02:38)
[2025-05-02] MEDS: hydrALAZINE HCL 20 MG/ML VL IV PRN (06:29)
[2025-05-02 07:53] LABS: Hematocrit 39.3 % (36.0-46.0); Hemoglobin 12.7 g/dL (12.2-16.2); Mean Corpuscular Hemoglobin 28.3 pg (28.0-32.0); Mean Corpuscular Volume 87.6 fL (80.0-100.0); Nucleated Red Blood Cells % 0.1 %
[2025-05-02 08:08] LABS: Albumin 4.3 g/dL (3.2-4.8); Anion Gap 9 (5-15); BUN/Creatinine Ratio 12.4 (10.0-20.0); Bilirubin, Total 0.5 mg/dL (0.2-1.0); Blood Urea Nitrogen 12 mg/dL (9-23); Calcium 8.9 mg/dL (8.7-10.4); Carbon Dioxide 25 mmol/L (20-31); Chloride 106 mmol/L (98-107); Potassium 4.1 mmol/L (3.5-5.1); Sodium 140 mmol/L (136-145); Total Protein 6.9 g/dL (5.7-8.2); Triglycerides 73 mg/dL (< 150)
[2025-05-02 08:11] LABS: Alanine Aminotransferase 487 U/L (7-40); Alkaline Phosphatase 122 U/L (46-116); Cholesterol 216 mg/dL (< 200); Glucose 129 mg/dL (74-106); HDL Cholesterol 69 mg/dL (40-59)
[2025-05-02] MEDS: PANTOPRAZOLE 40 MG/10 ML VIAL INJ IV SCH (09:31)
[2025-05-02] MEDS ORDERED: ENOXAPARIN SOD 40 MG/0.4 ML SYRINGE SC SCH (10:00)
[2025-05-02] MEDS: LOSARTAN POTASSIUM 50 MG TAB PO ONE (13:38)
--- NOTE | 2025-05-02 16:52 | DVHINCON2 ---
Date Seen: May 02, 2025 Referring Physician GARLAND Mari Reason for Consultation Elevated troponins History of Present Illness This is a 69-year-old female who presented to the emergency room via EMS with a chief complaint of ALOC. At time of assessment, the patient was found A&O x4 and somewhat somnolent. Reports she fell down unconscious on the floor secondary to self administered methamphetamines prior to the event. It appears bystanders called EMS for further evaluation with the patient been found hypothermic at the scene in an atrial fibrillation rhythm with rapid ventricular rate in the 140s-150s bpm. She was medicated with Narcan 1 mg and Zofran 4 mg EN route to the hospital. Upon arrival to the emergency room she underwent a 12 lead electrocardiogram revealing an atrial fibrillation rhythm with rapid ventricular rate at 143 bpm. At time of assessment, the patient had successfully transitioned into a normal sinus rhythm. Currently complains of bilateral lower ribcage pain which is reproducible upon palpation. Denies SOB, chest pain, palpitations, diaphoresis, or dizziness. Denies any past medical history or any Rx medications. She last saw her PCP over a year ago. Admits to regular methamphetamine use since 32s y.o. Denies any active use of fentanyl. Past Medical History Past medical history reviewed. No other significant than mentioned above. Past Surgical History Total hip replacement Family History Family history reviewed. Social History UDS positive for amphetamines and fentanyl. Per records patient admitted to tobacco, cannabinoid, and alcohol use. Allergies: Coded Allergies: NO KNOWN ALLERGIES (Unverified , 08/11/18) Home Meds Active Scripts Ibuprofen (Ibuprofen) 800 Mg Tab, 1 TAB PO Q8HP PRN, #30 TAB Prov:MIGUELINA SELF MD 11/06/23 Acetaminophen (Tylenol Extra Strength) 500 Mg Tab, 1000 MG PO Q6HP PRN, #30 TAB Prov:MIGUELINA SELF MD 11/06/23 Home Meds Denies any prescribed home medications. Current Medications Current Medications Medications (Trade) Dose Ordered Sig/Navi Route PRN Reason Start Time Stop Time Status Last Admin Nitroglycerin (Ntrostat Sublingual) 0.4 mg Q5MINP PRN SL FOR CHEST PAIN 05/02/25 00:45 Morphine Sulfate 2 mg Q30M PRN IV FOR CHEST PAIN 05/02/25 00:45 Hydralazine HCl (Apresoline Injection) 10 mg Q6HPRN PRN IV SBP>160 05/02/25 00:45 05/02/25 12:24 Ondansetron HCl (Zofran) 4 mg Q6HP PRN IV NAUSEA / VOMITING 05/02/25 00:45 Metoprolol Tartrate (Lopressor Tablet) 25 mg BID PO 05/02/25 00:45 05/02/25 09:31 Acetaminophen (Tylenol Tablet) 650 mg Q6HPRN PRN PO PAIN SCALE 1-3 OR TEMP>100.4 05/02/25 00:45 Pantoprazole Sodium (Protonix) 40 mg DAILY IV 05/02/25 10:00 05/02/25 09:31 Enoxaparin Sodium (Lovenox) 40 mg DAILY SC 05/02/25 10:00 05/02/25 01:30 DC Atorvastatin Calcium (Lipitor) 40 mg HS PO 05/02/25 22:00 Enoxaparin Sodium (Lovenox) 70 mg Q12HR SC 05/02/25 01:30 05/02/25 09:31 Aspirin 81 mg DAILY PO 05/02/25 10:00 05/02/25 09:31 Losartan Potassium (Cozaar Tablet) 50 mg BID PO 05/02/25 22:00 Review of Systems Constitutional: No symptom reported Ears, Nose, & Throat: No symptom reported Eyes: No symptom reported Neurological: No symptoms reported Pulmonary/Respiratory: No symptom reported Cardiovascular: No symptom reported Gastrointestinal: No symptom reported Genitourinary: No symptom reported Musculoskeletal: Bilateral ribcage pain Skin: No symptom reported Psychiatric: No symptom reported Endocrine: No symptom reported Hemotologic/Lymphatic: No symptom reported Vital Signs Vital Signs Date Time Temp Pulse Resp B/P (MAP) Pulse Ox O2 Delivery O2 Flow Rate FiO2 05/02/25 14:02 97.5 85 136/86 (103) 97.5 05/02/25 12:20 17 95 05/02/25 08:00 Nasal Cannula* 4 36 Physical Exam General Appearance: Cooperative. Well developed. Unkept. In no acute distress Head Exam: Normal inspection Neck Exam: Normal inspection. Non-tender. Normal alignment Pulmonary/Respiratory: Chest non-tender. Clear bilateral breath sounds Cardiovascular/Chest: Regular rate and rhythm. S1, S2. NSR. No murmurs. No JVD. Peripheral Pulses: 2+ Radial (R). 2+ Radial (L). 2+ Pedal (R). 2+ Pedal (L) Abdominal Exam: Normal bowel sounds Ankle Exam: Negative ankle edema Lower extremities: Negative lower extremity edema Neuro/Mental Status: A&O x3. Coherent Thoughts/Psych: Normal thought pattern. Appropriate mood and affect. Pleasant Appearance: In no acute distress Skin Exam: Normal inspection. Normal color. Warm. Dry Labs/Diagnostic Data Labs Test 05/02/25 14:19 05/02/25 07:27 05/01/25 22:01 05/01/25 21:55 Range/Units Troponin I High Sensitivity 121 *H </=34 ng/L White Blood Count 11.5 H 4.4-10.8 10^3/uL Red Blood Count 4.48 4.0-5.20 10^6/uL Hemoglobin 12.7 12.2-16.2 g/dL Hematocrit 39.3 36.0-46.0 % Mean Corpuscular Volume 87.6 80.0-100.0 fL Mean Corpuscular Hemoglobin 28.3 28.0-32.0 pg Mean Corpuscular Hemoglobin Concent 32.3 32.0-36.0 g/dL Red Cell Distribution Width 16.3 H 11.8-14.3 % Platelet Count 223 140-450 10^3/uL Mean Platelet Volume 9.2 6.9-10.8 fL Neutrophils (%) (Auto) 89.7 H 37.0-80.0 % Lymphocytes (%) (Auto) 5.6 L 10.0-50.0 % Monocytes (%) (Auto) 4.7 0.0-12.0 % Eosinophils (%) (Auto) 0.0 0.0-7.0 % Basophils (%) (Auto) 0.0 0.0-2.0 % Neutrophils # (Auto) 10.3 H 1.6-8.6 10 ^3/uL Lymphocytes # (Auto) 0.6 0.4-5.4 10 ^3/uL Monocytes # (Auto) 0.5 0-1.3 10 ^3/uL Eosinophils # (Auto) 0 0-0.8 10 ^3/uL Basophils # (Auto) 0 0-0.2 10 ^3/uL Nucleated Red Blood Cells 0.1 % Sodium Level 140 136-145 mmol/L Potassium Level 4.1 3.5-5.1 mmol/L Chloride Level 106 98-107 mmol/L Carbon Dioxide Level 25 20-31 mmol/L Anion Gap 9 5-15 Blood Urea Nitrogen 12 9-23 mg/dL Creatinine 0.97 0.550-1.02 mg/dL Glomerular Filtration Rate Calc 64 >90 mL/min BUN/Creatinine Ratio 12.4 10.0-20.0 Serum Glucose 129 H 74-106 mg/dL Calcium Level 8.9 8.7-10.4 mg/dL Total Bilirubin 0.5 0.2-1.0 mg/dL Aspartate Amino Transferase (AST) 535 H 13-40 U/L Alanine Aminotransferase (ALT) 487 H 7-40 U/L Alkaline Phosphatase 122 H 46-116 U/L Total Protein 6.9 5.7-8.2 g/dL Albumin 4.3 3.2-4.8 g/dL Triglycerides Level 73 < 150 mg/dL Cholesterol Level 216 H < 200 mg/dL LDL Cholesterol 139 H < 100 mg/dL HDL Cholesterol 69 H 40-59 mg/dL Influenza Type A Antigen Negative Negative Influenza Type B Antigen Negative Negative SARS-CoV-2 Antigen (Rapid) Negative NEGATIVE Urine Color Colorless Yellow Urine Clarity Clear Clear Urine pH 6.5 5.0-9.0 Urine Specific [place] 1.008 1.001-1.035 Urine Protein Trace H Negative Urine Ketones Negative Negative Urine Blood 2+ H Negative /uL Urine Nitrite Negative Negative Urine Bilirubin Negative Negative Urine Urobilinogen Normal Negative mg/dL Urine Leukocyte Esterase Negative Negative /uL Urine RBC 1 0 - 4 /hpf Urine Microscopic WBC 1 0-5 /HPF Urine Squamous Epithelial Cells Few <5 /hpf Urine Bacteria Few H None Seen /hpf Urine Glucose 2+ H Normal mg/dL Urine Opiates Screen Neg NEGATIVE Urine Fentanyl Screen Pos NEGATIVE Urine Barbiturates Screen Neg NEGATIVE Urine Phencyclidine Screen Neg NEGATIVE Urine Amphetamines Screen Pos NEGATIVE Urine Benzodiazepines Screen Neg NEGATIVE Urine Cocaine Screen Neg NEGATIVE Urine Cannabinoids Screen Neg NEGATIVE Test 05/01/25 21:10 05/01/25 20:45 Range/Units Lactic Acid Level 1.8 0.4-2.0 mmol/L Magnesium Level 2.0 1.6-2.6 mg/dL B-Type Natriuretic Peptide 28.90 0-100 pg/mL Lipase 37 12-53 U/L Thyroid Stimulating Hormone (TSH) 12.88 H 0.55-4.78 uIU/mL Plasma/Serum Blood Alcohol < 3.0 <10 mg/dL Blood Gas Specimen Type Arterial Blood Gas Sample Site Right radial Blood Gas Patient Temperature 37.0 Arterial Blood Date Drawn [id number] Arterial Blood pH 7.337 L 7.350-7.450 Arterial Blood Partial Pressure CO2 44.5 32.0-45.0 mmHg Arterial Blood Partial Pressure O2 145.8 H 83.0-108.0 mmHg Arterial Blood HCO3 23.3 21.0-28.0 mmol/L Arterial Blood Oxygen Saturation 98.8 H 94.0-98.0 % Arterial Blood Base Excess -2.6 L -2.0-3.0 mmol/L Arterial Blood Oxyhemoglobin 96.5 94.0-98.0 % Arterial Blood Carboxyhemoglobin 1.7 H 0.5-1.5 % Arterial Blood Methemoglobin 0.6 0.0-1.5 % Arterial Blood Deoxyhemoglobin 1.2 0.0-5.0 % Pankaj Test Yes Blood Gas Total Hemoglobin 13.70 12.0-16.0 g/dL Blood Gas Liter Flow 15.00 Blood Gas Modality Mask - nrb Blood Gas Spontaneous Rate 18 FiO2 % 100.0 Assessment Paroxysmal atrial fibrillation with rapid ventricular rate, newly diagnosed, now NSR Cold exposure with hypothermia, resolved Acute methamphetamine/fentanyl intoxication NSTEMI, likely type 2 secondary to above Chronic history of polysubstance abuse Hypertension, newly diagnosed Dyslipidemia, newly diagnosed Elevated LFTs rule out hepatitis ?Thyroid disease Plan/Recommendation (Dr. Reinoso) A transthoracic echocardiogram revealed a preserved LVEF. The patient presented with a newly diagnosed atrial fibrillation rhythm with rapid ventricular rate and self converted into a normal sinus rhythm. Continue metoprolol XL for rate control. Continue DOAC therapy with Eliquis ([id number] Score 3 points, HAS- BLED Score 3 points). She can benefit from an outpatient event monitor and follow-up with a primary boat rental clerk within 3-4 weeks post-discharge. She could also benefit from an outpatient stress test if deemed necessary. Continue lipid lowering agent. Primary care team to follow up on thyroid work-up and LFTs. Strongly advised on polysubstance abuse cessation and medical compliance. Kindly call if you need further recommendations. Signing off at this time. Thank you for allowing us to participate in this patient's care. This medical document was created using an electronic medical record system with voice recognition software and computerized dictation system. Although this document has been carefully reviewed, there might still be some phonetic and typographical errors. Occasional wrong-word or ``sound-alike substitutions may have occurred due to the inherent limitations of voice recognition software. These areas are purely typographical due to imperfections of the software programs and do not reflect any compromise in the patient's medical care. Please read the chart carefully and recognize, using context, where these substitutions have occurred. Plan discussed with: Patient, Other NYHA Physical activity limitations: NA Date of Service: May 02, 2025 Billing Provider: CARISSA JACOME Cardiology Common Codes: [id number] INP/OBS CARE (High) CARISSA JACOME May 02, 2025 16:52
--- NOTE | 2025-05-02 20:14 | DVHSR ---
APPROVED REPORT EXAM: Two-dimensional and M-mode echocardiogram with Doppler and color Doppler. Blood Pressure: 177/117 mmHg INDICATION ELEVATED TROPS RISK FACTORS Height: 5'2, Weight: 150 DIMENSIONS LVDd 3.9 (3.8-5.7cm) LA (2D) 4.3 (1.9-4.0cm) Aortic Root 3.5 (2.0-3.7cm) LVDs 2.9 (2.5-4.0cm) LA (MM) (1.9-4.0cm) Aortic Cusp Exc 1.8 (1.5-2.0cm) EF (%) 55.0 (55-70%) Rt. Atrium 4.0 (1.9-4.0cm) Asc. Aorta 3.7 cm IVSd 1.2 (0.7-1.1cm) RV (D) 4.2 (1.8-2.4cm) PWd 1.1 (0.7-1.1cm) Mitral Valve Mitral Mitral Stenosis E wave 0.75m/s MV Mean GR. mmHg A wave 1.20m/s MV Peak GR. mmHg E/A ratio 0.6 2D MVA cm2 DECEL Time 177ms PRESS 1/2 Time ms Aortic Valve Aortic Valve Aortic Stenosis V1 1.02m/s AO Mean GR. 6mmHg V2 1.51m/s AO Peak GR. 10mmHg LVOT Diameter 2.0 (1.8-2.4cm) Doppler ARTHUR 2.12cm2 Pulmonic Valve V2 1.05m/s Other Information Technically limited study due to S/P CPR Conclusion MILD LVH AND MILD LV DIASTOLIC DYSFUNCTION' LV EF IS 65% MODERATELY DILATED RV AND RA NORMAL VALVES NO EFFUSION
[2025-05-02] MEDS: LOSARTAN POTASSIUM 50 MG TAB PO SCH (20:39)
[2025-05-02] MEDS: APIXABAN 5 MG TAB PO SCH (20:39)
[2025-05-02] MEDS: ATORVASTATIN 20 MG TAB PO SCH (20:40)
--- NOTE | 2025-05-02 23:46 | DVHINCON2 ---
Date Seen: May 02, 2025 Referring Physician GARLAND Mari Reason for Consultation Elevated troponins History of Present Illness This is a 69-year-old female without any PMH brought in by EMS with a chief complaint of ALOC. At time of assessment, the patient was found A&O x4 and somewhat somnolent. Reports she fell down unconscious on the floor secondary to self administered methamphetamines prior to the event. It appears bystanders called EMS for further evaluation with the patient been found hypothermic at the scene in an atrial fibrillation rhythm with rapid ventricular rate in the 140s- 150s bpm. She was medicated with Narcan 1 mg and Zofran 4 mg EN route to the hospital. Upon arrival to the emergency room she underwent a 12 lead electrocardiogram revealing an atrial fibrillation rhythm with rapid ventricular rate at 143 bpm. At time of assessment, the patient had successfully transitioned into a normal sinus rhythm. Currently complains of bilateral lower ribcage pain which is reproducible upon palpation. Denies SOB, chest pain, palpitations, diaphoresis, or dizziness. Denies any past medical history or any Rx medications. She last saw her PCP over a year ago. Admits to regular methamphetamine use since 32s y.o. Denies any active use of fentanyl. Past Medical History Past medical history reviewed. No other significant than mentioned above. Past Surgical History Total hip replacement Allergies: Coded Allergies: NO KNOWN ALLERGIES (Unverified , 08/11/18) Home Meds Active Scripts Ibuprofen (Ibuprofen) 800 Mg Tab, 1 TAB PO Q8HP PRN, #30 TAB Prov:MIGUELINA SELF MD 11/06/23 Acetaminophen (Tylenol Extra Strength) 500 Mg Tab, 1000 MG PO Q6HP PRN, #30 TAB Prov:MIGUELINA SELF MD 11/06/23 Current Medications Current Medications Medications (Trade) Dose Ordered Sig/Navi Route PRN Reason Start Time Stop Time Status Last Admin Nitroglycerin (Ntrostat Sublingual) 0.4 mg Q5MINP PRN SL FOR CHEST PAIN 05/02/25 00:45 Morphine Sulfate 2 mg Q30M PRN IV FOR CHEST PAIN 05/02/25 00:45 Hydralazine HCl (Apresoline Injection) 10 mg Q6HPRN PRN IV SBP>160 05/02/25 00:45 05/02/25 12:24 Ondansetron HCl (Zofran) 4 mg Q6HP PRN IV NAUSEA / VOMITING 05/02/25 00:45 Metoprolol Tartrate (Lopressor Tablet) 25 mg BID PO 05/02/25 00:45 05/02/25 16:53 DC 05/02/25 09:31 Acetaminophen (Tylenol Tablet) 650 mg Q6HPRN PRN PO PAIN SCALE 1-3 OR TEMP>100.4 05/02/25 00:45 Pantoprazole Sodium (Protonix) 40 mg DAILY IV 05/02/25 10:00 05/02/25 09:31 Enoxaparin Sodium (Lovenox) 40 mg DAILY SC 05/02/25 10:00 05/02/25 01:30 DC Atorvastatin Calcium (Lipitor) 40 mg HS PO 05/02/25 22:00 05/02/25 20:40 Enoxaparin Sodium (Lovenox) 70 mg Q12HR SC 05/02/25 01:30 05/02/25 16:53 DC 05/02/25 09:31 Aspirin 81 mg DAILY PO 05/02/25 10:00 05/02/25 09:31 Losartan Potassium (Cozaar Tablet) 50 mg BID PO 05/02/25 22:00 05/02/25 20:39 Metoprolol Succinate (Toprol Xl) 50 mg DAILY PO 05/03/25 10:00 Apixaban (Eliquis) 5 mg BID PO 05/02/25 22:00 05/02/25 20:39 Review of Systems Constitutional: No symptom reported Ears, Nose, & Throat: No symptom reported Eyes: No symptom reported Neurological: No symptoms reported Pulmonary/Respiratory: No symptom reported Cardiovascular: No symptom reported Gastrointestinal: No symptom reported Genitourinary: No symptom reported Musculoskeletal: Bilateral ribcage pain Skin: No symptom reported Psychiatric: No symptom reported Endocrine: No symptom reported Hemotologic/Lymphatic: No symptom reported Vital Signs Vital Signs Date Time Temp Pulse Resp B/P (MAP) Pulse Ox O2 Delivery O2 Flow Rate FiO2 05/02/25 22:00 72 150/105 (120) 05/02/25 21:00 97.9 19 95 97.9 05/02/25 08:00 Nasal Cannula* 4 36 Physical Exam GENERAL: Alert and oriented x 3. No acute distress. Unkept. EYES: PERRL, EOMI. Anicteric. HENT: Moist mucous membranes. LUNGS: Clear to auscultation bilaterally. CARDIOVASCULAR: Regular rate and rhythm. ABDOMEN: Soft, non-tender and non-distended. EXTREMITIES: No edema. NEUROLOGIC: No focal neurological deficits. SKIN: Warm, dry. Labs/Diagnostic Data Labs Test 05/02/25 22:43 05/02/25 14:19 05/02/25 07:27 05/01/25 22:01 Range/Units Troponin I High Sensitivity 106 *H </=34 ng/L White Blood Count 11.5 H 4.4-10.8 10^3/uL Red Blood Count 4.48 4.0-5.20 10^6/uL Hemoglobin 12.7 12.2-16.2 g/dL Hematocrit 39.3 36.0-46.0 % Mean Corpuscular Volume 87.6 80.0-100.0 fL Mean Corpuscular Hemoglobin 28.3 28.0-32.0 pg Mean Corpuscular Hemoglobin Concent 32.3 32.0-36.0 g/dL Red Cell Distribution Width 16.3 H 11.8-14.3 % Platelet Count 223 140-450 10^3/uL Mean Platelet Volume 9.2 6.9-10.8 fL Neutrophils (%) (Auto) 89.7 H 37.0-80.0 % Lymphocytes (%) (Auto) 5.6 L 10.0-50.0 % Monocytes (%) (Auto) 4.7 0.0-12.0 % Eosinophils (%) (Auto) 0.0 0.0-7.0 % Basophils (%) (Auto) 0.0 0.0-2.0 % Neutrophils # (Auto) 10.3 H 1.6-8.6 10 ^3/uL Lymphocytes # (Auto) 0.6 0.4-5.4 10 ^3/uL Monocytes # (Auto) 0.5 0-1.3 10 ^3/uL Eosinophils # (Auto) 0 0-0.8 10 ^3/uL Basophils # (Auto) 0 0-0.2 10 ^3/uL Nucleated Red Blood Cells 0.1 % Sodium Level 140 136-145 mmol/L Potassium Level 4.1 3.5-5.1 mmol/L Chloride Level 106 98-107 mmol/L Carbon Dioxide Level 25 20-31 mmol/L Anion Gap 9 5-15 Blood Urea Nitrogen 12 9-23 mg/dL Creatinine 0.97 0.550-1.02 mg/dL Glomerular Filtration Rate Calc 64 >90 mL/min BUN/Creatinine Ratio 12.4 10.0-20.0 Serum Glucose 129 H 74-106 mg/dL Hemoglobin A1c 5.5 <5.7 % A1C Calcium Level 8.9 8.7-10.4 mg/dL Total Bilirubin 0.5 0.2-1.0 mg/dL Aspartate Amino Transferase (AST) 535 H 13-40 U/L Alanine Aminotransferase (ALT) 487 H 7-40 U/L Alkaline Phosphatase 122 H 46-116 U/L Total Protein 6.9 5.7-8.2 g/dL Albumin 4.3 3.2-4.8 g/dL Triglycerides Level 73 < 150 mg/dL Cholesterol Level 216 H < 200 mg/dL LDL Cholesterol 139 H < 100 mg/dL HDL Cholesterol 69 H 40-59 mg/dL Influenza Type A Antigen Negative Negative Influenza Type B Antigen Negative Negative SARS-CoV-2 Antigen (Rapid) Negative NEGATIVE Test 05/01/25 21:55 05/01/25 21:10 05/01/25 20:45 Range/Units Urine Color Colorless Yellow Urine Clarity Clear Clear Urine pH 6.5 5.0-9.0 Urine Specific [place] 1.008 1.001-1.035 Urine Protein Trace H Negative Urine Ketones Negative Negative Urine Blood 2+ H Negative /uL Urine Nitrite Negative Negative Urine Bilirubin Negative Negative Urine Urobilinogen Normal Negative mg/dL Urine Leukocyte Esterase Negative Negative /uL Urine RBC 1 0 - 4 /hpf Urine Microscopic WBC 1 0-5 /HPF Urine Squamous Epithelial Cells Few <5 /hpf Urine Bacteria Few H None Seen /hpf Urine Glucose 2+ H Normal mg/dL Urine Opiates Screen Neg NEGATIVE Urine Fentanyl Screen Pos NEGATIVE Urine Barbiturates Screen Neg NEGATIVE Urine Phencyclidine Screen Neg NEGATIVE Urine Amphetamines Screen Pos NEGATIVE Urine Benzodiazepines Screen Neg NEGATIVE Urine Cocaine Screen Neg NEGATIVE Urine Cannabinoids Screen Neg NEGATIVE Lactic Acid Level 1.8 0.4-2.0 mmol/L Magnesium Level 2.0 1.6-2.6 mg/dL B-Type Natriuretic Peptide 28.90 0-100 pg/mL Lipase 37 12-53 U/L Thyroid Stimulating Hormone (TSH) 12.88 H 0.55-4.78 uIU/mL Plasma/Serum Blood Alcohol < 3.0 <10 mg/dL Blood Gas Specimen Type Arterial Blood Gas Sample Site Right radial Blood Gas Patient Temperature 37.0 Arterial Blood Date Drawn [id number] Arterial Blood pH 7.337 L 7.350-7.450 Arterial Blood Partial Pressure CO2 44.5 32.0-45.0 mmHg Arterial Blood Partial Pressure O2 145.8 H 83.0-108.0 mmHg Arterial Blood HCO3 23.3 21.0-28.0 mmol/L Arterial Blood Oxygen Saturation 98.8 H 94.0-98.0 % Arterial Blood Base Excess -2.6 L -2.0-3.0 mmol/L Arterial Blood Oxyhemoglobin 96.5 94.0-98.0 % Arterial Blood Carboxyhemoglobin 1.7 H 0.5-1.5 % Arterial Blood Methemoglobin 0.6 0.0-1.5 % Arterial Blood Deoxyhemoglobin 1.2 0.0-5.0 % Pankaj Test Yes Blood Gas Total Hemoglobin 13.70 12.0-16.0 g/dL Blood Gas Liter Flow 15.00 Blood Gas Modality Mask - nrb Blood Gas Spontaneous Rate 18 FiO2 % 100.0 Microbiology Date/Time Source Procedure Growth Status 05/01/25 21:15 Blood Blood Culture - Preliminary NO GROWTH AFTER 24 HOURS OF INCUBATION. Resulted Assessment Paroxysmal atrial fibrillation with rapid ventricular rate, newly diagnosed, now NSR. Cold exposure with hypothermia, resolved. Acute methamphetamine/fentanyl intoxication. NSTEMI, likely type 2 secondary to above. Chronic history of polysubstance abuse. Hypertension, newly diagnosed. Dyslipidemia, newly diagnosed. Elevated LFTs rule out hepatitis. ?Thyroid disease. Plan/Recommendation I agree with your ongoing assessment and care of plan. Patient has been seen by Lizeth Daley NP on my behalf. We have discussed the plan with the patient. A transthoracic echocardiogram revealed a preserved LVEF. The patient presented with a newly diagnosed atrial fibrillation rhythm with rapid ventricular rate and self converted into a normal sinus rhythm. Continue metoprolol XL for rate control. Continue DOAC therapy with Eliquis ([id number] Score 3 points, HAS-BLED Score 3 points). She can benefit from an outpatient event monitor and follow-up with a primary public health nurse within 3-4 weeks post-discharge. She could also benefit from an outpatient stress test if deemed necessary. Continue lipid lowering agent. Primary care team to follow up on thyroid work-up and LFTs. Strongly advised on polysubstance abuse cessation and medical compliance. Additional plan as per the hospital course. Plan discussed with: Patient NYHA Physical activity limitations: NA Date of Service: May 02, 2025 Billing Provider: MEÑO DE JESUS MD Cardiology Common Codes: 00540-JYWRZOZ INP/OBS CARE (High) Cardiology Consultation Codes: [id number] CONSULT <45MIN MEÑO DE JESUS MD May 02, 2025 23:46
[2025-05-03] VITALS (9 sets, daily range): BP systolic 107–186; BP diastolic 71–112; PULSE 60–103; RESP 17–19; TEMP 97.7–98.6; O2SAT 91–99
[2025-05-03 07:13] LABS: Hematocrit 39.4 % (36.0-46.0); Hemoglobin 12.7 g/dL (12.2-16.2); Mean Corpuscular Hemoglobin 27.6 pg (28.0-32.0); Mean Corpuscular Volume 85.4 fL (80.0-100.0)
[2025-05-03 07:36] LABS: Albumin 4.2 g/dL (3.2-4.8); Anion Gap 11 (5-15); BUN/Creatinine Ratio 14.5 (10.0-20.0); Blood Urea Nitrogen 12 mg/dL (9-23); Calcium 9.4 mg/dL (8.7-10.4); Carbon Dioxide 26 mmol/L (20-31); Chloride 101 mmol/L (98-107); Glucose 96 mg/dL (74-106); Potassium 3.7 mmol/L (3.5-5.1); Sodium 138 mmol/L (136-145); Total Protein 6.8 g/dL (5.7-8.2)
[2025-05-03 07:37] LABS: Alanine Aminotransferase 388 U/L (7-40); Alkaline Phosphatase 119 U/L (46-116); Bilirubin, Total 1.0 mg/dL (0.2-1.0)
--- NOTE | 2025-05-03 08:32 | ECG ---
[facility] Test Date: 2025-05-01 Test Time: 20:29:19 Pat Name: KING YA Department: [facility] ED Patient ID: [id number] Room: 0289T B Gender: F Senior Director Of Strategy: daryl : 1955 Requested By: GRISELDA MADDEN Order Number: [id number] Reading MD: Stephen Casas Measurements Intervals [place]ard Rate: 143 P: 0 HI: 0 QRS: 63 QRSD: 112 T: 15 QT: 342 QTc: 528 Interpretive Statements Atrial fibrillation Borderline intraventricular conduction delay ST depression, probably rate related Prolonged QT interval Artifact in lead(s) II,III,aVL,aVF,V1,V2,V3,V4,V5,V6 Electronically Signed On 05-03-2025 10:32:32 PST by Stephen Casas Please click the below link to view image of tracing.
[2025-05-03 08:35] LABS: Nucleated Red Blood Cells % 0.1 %
[2025-05-03] MEDS: ACETAMINOPHEN 325 MG TAB PO PRN (08:35)
[2025-05-03] MEDS: METOPROLOL SUCCINATE XL 50 MG TAB PO SCH (09:34)
[2025-05-03 11:19] LABS: Hepatitis A Total Antibody Positive (Negative)
[2025-05-03 11:20] LABS: Hepatitis B Surface Antigen Negative (Negative)
[2025-05-03 11:42] LABS: Hepatitis C Antibody Positive (Negative)
--- NOTE | 2025-05-03 13:51 | DVHINCON2 ---
GI Consult Consult Note GI consult note Date of Consultation: 05/03/2025 Chief Complaint: Elevated liver enzymes Referring Physician: Kamaljit HAQUE H&P: 69-year-old female brought in by EMS in his state of hypothermia. Patient complaining of chest pain at time of arrival. Patient is positive for fentanyl and methamphetamine use. Patient is complaining of upper abdominal pain on and off for two weeks. Patient has nausea denies vomiting no hematemesis. Last BM two days ago denies melena or red blood in stool. Patient thinks she was diagnosed with hepatitis in the past but unsure and was subsequently told that was negative per patient. Admits to drinking alcohol but denies that it is heavy use. Patient recently has weight loss but is unsure of how many lb she has lost. No EGD or colonoscopy in past Patient takes [id number] ibuprofen 5-6 pills every day Past Medical History: Tongue cancer, osteoporosis Past Surgical History: , splenectomy, left hip replacement Social History: Smoker: Cigarettes Alcohol: Occasionally Drugs: Marijuana Lives In: Home Patient is positive [facility] for fentanyl and methamphetamine Family History: Noncontributory Review of Systems: Constitutional: no fever, chill, weight loss HEENT: no eye pain, no hearing loss, no oral lesion, no scleral icterus Heart: no chest pain, no chest pressure Lung: no cough, no dyspnea with exertion Abdomen: see HPI Physical exam: General: NAD, AAOX3 Chest: lung shea clear to auscultation Heart: RRR, no murmur Abdomen: non-distended, no tenderness to palpation, +BS Labs: Labs Test 05/03/25 05:06 05/02/25 22:43 05/02/25 14:19 05/02/25 07:27 Range/Units White Blood Count 12.3 H 4.4-10.8 10^3/uL Red Blood Count 4.61 4.0-5.20 10^6/uL Hemoglobin 12.7 12.2-16.2 g/dL Hematocrit 39.4 36.0-46.0 % Mean Corpuscular Volume 85.4 80.0-100.0 fL Mean Corpuscular Hemoglobin 27.6 L 28.0-32.0 pg Mean Corpuscular Hemoglobin Concent 32.3 32.0-36.0 g/dL Red Cell Distribution Width 16.1 H 11.8-14.3 % Platelet Count 234 140-450 10^3/uL Mean Platelet Volume 10.3 6.9-10.8 fL Neutrophils (%) (Auto) 82.3 H 37.0-80.0 % Lymphocytes (%) (Auto) 9.9 L 10.0-50.0 % Monocytes (%) (Auto) 7.1 0.0-12.0 % Eosinophils (%) (Auto) 0.5 0.0-7.0 % Basophils (%) (Auto) 0.2 0.0-2.0 % Neutrophils # (Auto) 10.1 H 1.6-8.6 10 ^3/uL Lymphocytes # (Auto) 1.2 0.4-5.4 10 ^3/uL Monocytes # (Auto) 0.9 0-1.3 10 ^3/uL Eosinophils # (Auto) 0.1 0-0.8 10 ^3/uL Basophils # (Auto) 0 0-0.2 10 ^3/uL Nucleated Red Blood Cells 0.1 % Sodium Level 138 136-145 mmol/L Potassium Level 3.7 3.5-5.1 mmol/L Chloride Level 101 98-107 mmol/L Carbon Dioxide Level 26 20-31 mmol/L Anion Gap 11 5-15 Blood Urea Nitrogen 12 9-23 mg/dL Creatinine 0.83 0.550-1.02 mg/dL Glomerular Filtration Rate Calc 77 >90 mL/min BUN/Creatinine Ratio 14.5 10.0-20.0 Serum Glucose 96 74-106 mg/dL Calcium Level 9.4 8.7-10.4 mg/dL Total Bilirubin 1.0 0.2-1.0 mg/dL Aspartate Amino Transferase (AST) 266 H 13-40 U/L Alanine Aminotransferase (ALT) 388 H 7-40 U/L Alkaline Phosphatase 119 H 46-116 U/L Total Protein 6.8 5.7-8.2 g/dL Albumin 4.2 3.2-4.8 g/dL Troponin I High Sensitivity 106 *H </=34 ng/L Hepatitis A Antibody Total Positive H Negative Hepatitis B Surface Antigen Negative Negative Hepatitis B Surface Antibody Positive H Negative Hepatitis B Core Total Antibody Positive H Negative Hepatitis C Antibody Positive *A Negative Hemoglobin A1c 5.5 <5.7 % A1C Triglycerides Level 73 < 150 mg/dL Cholesterol Level 216 H < 200 mg/dL LDL Cholesterol 139 H < 100 mg/dL HDL Cholesterol 69 H 40-59 mg/dL Test 05/01/25 22:01 05/01/25 21:55 05/01/25 21:10 05/01/25 20:45 Range/Units Influenza Type A Antigen Negative Negative Influenza Type B Antigen Negative Negative SARS-CoV-2 Antigen (Rapid) Negative NEGATIVE Urine Color Colorless Yellow Urine Clarity Clear Clear Urine pH 6.5 5.0-9.0 Urine Specific [place] 1.008 1.001-1.035 Urine Protein Trace H Negative Urine Ketones Negative Negative Urine Blood 2+ H Negative /uL Urine Nitrite Negative Negative Urine Bilirubin Negative Negative Urine Urobilinogen Normal Negative mg/dL Urine Leukocyte Esterase Negative Negative /uL Urine RBC 1 0 - 4 /hpf Urine Microscopic WBC 1 0-5 /HPF Urine Squamous Epithelial Cells Few <5 /hpf Urine Bacteria Few H None Seen /hpf Urine Glucose 2+ H Normal mg/dL Urine Opiates Screen Neg NEGATIVE Urine Fentanyl Screen Pos NEGATIVE Urine Barbiturates Screen Neg NEGATIVE Urine Phencyclidine Screen Neg NEGATIVE Urine Amphetamines Screen Pos NEGATIVE Urine Benzodiazepines Screen Neg NEGATIVE Urine Cocaine Screen Neg NEGATIVE Urine Cannabinoids Screen Neg NEGATIVE Lactic Acid Level 1.8 0.4-2.0 mmol/L Magnesium Level 2.0 1.6-2.6 mg/dL B-Type Natriuretic Peptide 28.90 0-100 pg/mL Lipase 37 12-53 U/L Thyroid Stimulating Hormone (TSH) 12.88 H 0.55-4.78 uIU/mL Plasma/Serum Blood Alcohol < 3.0 <10 mg/dL Blood Gas Specimen Type Arterial Blood Gas Sample Site Right radial Blood Gas Patient Temperature 37.0 Arterial Blood Date Drawn [id number] Arterial Blood pH 7.337 L 7.350-7.450 Arterial Blood Partial Pressure CO2 44.5 32.0-45.0 mmHg Arterial Blood Partial Pressure O2 145.8 H 83.0-108.0 mmHg Arterial Blood HCO3 23.3 21.0-28.0 mmol/L Arterial Blood Oxygen Saturation 98.8 H 94.0-98.0 % Arterial Blood Base Excess -2.6 L -2.0-3.0 mmol/L Arterial Blood Oxyhemoglobin 96.5 94.0-98.0 % Arterial Blood Carboxyhemoglobin 1.7 H 0.5-1.5 % Arterial Blood Methemoglobin 0.6 0.0-1.5 % Arterial Blood Deoxyhemoglobin 1.2 0.0-5.0 % Pankaj Test Yes Blood Gas Total Hemoglobin 13.70 12.0-16.0 g/dL Blood Gas Liter Flow 15.00 Blood Gas Modality Mask - nrb Blood Gas Spontaneous Rate 18 FiO2 % 100.0 Microbiology Date/Time Source Procedure Growth Status 05/01/25 21:15 Blood Blood Culture - Preliminary NO GROWTH AFTER 24 HOURS OF INCUBATION. Resulted Imaging: Assessment: Hepatitis-B and C positive Transaminitis Substance abuse Plan: Discussed with Dr. Crawford Abdominal ultrasound Monitor lab DC alcohol discussed extensively DC NSAIDs discussed Outpatient GI follow-up for monitoring and treatment of hepatitis Thank you for this consult Date of Service: May 03, 2025 Billing Provider: MONICA PICKETT Common Visit Codes: CONSULT ONLY Consultation Codes: [id number] CONSULT <60MIN MONICA PICKETT May 03, 2025 13:51
--- NOTE | 2025-05-03 14:54 | DVHPN2 ---
Progress Note - Dictate Date Seen: May 03, 2025 Medical Necessity Reason Pt with a Central, PICC or Fol: No Subjective Patient is clinically stable. Her LFTs are in the 300 range. Her hepatitis serology panel came back positive for hepatitis-B and hepatitis-C infection. Evaluated by Gastroenterology ordered ultrasound of the liver today pending. Recommending outpatient follow up for treatment. Patient's meantime without any complaints. vital signs Vital Sign Date Time Temp Pulse Resp B/P (MAP) Pulse Ox O2 Delivery O2 Flow Rate FiO2 05/03/25 12: 98.5 80 17 165/112 (129) 98 98.5 05/02/25 20:00 Room Air* 0 21 Total Intake and Output 05/02/25 05/02/25 05/03/25 15:00 23:00 07:00 Intake Total 900 ml Balance 900 ml medications Current Medications Medications Dose Ordered Sig/Navi Route Start Time Stop Time Status Last Admin Dose Admin Nitroglycerin 0.4 mg Q5MINP PRN SL 05/02/25 00:45 Morphine Sulfate 2 mg Q30M PRN IV 05/02/25 00:45 Hydralazine HCl 10 mg Q6HPRN PRN IV 05/02/25 00:45 05/03/25 00:05 10 MG Ondansetron HCl 4 mg Q6HP PRN IV 05/02/25 00:45 Acetaminophen 650 mg Q6HPRN PRN PO 05/02/25 00:45 05/03/25 08:35 650 MG Pantoprazole Sodium 40 mg DAILY IV 05/02/25 10:00 05/03/25 09:32 40 MG Atorvastatin Calcium 40 mg HS PO 05/02/25 22:00 05/02/25 20:40 40 MG Aspirin 81 mg DAILY PO 05/02/25 10:00 05/03/25 09:34 81 MG Losartan Potassium 50 mg BID PO 05/02/25 22:00 05/03/25 09:33 50 MG Metoprolol Succinate 50 mg DAILY PO 05/03/25 10:00 05/03/25 09:34 50 MG Apixaban 5 mg BID PO 05/02/25 22:00 05/03/25 09:32 5 MG objective Alert awake oriented x3. HEENT neck supple no JVD. Heart regular rate and rhythm. Lungs fair air movement without wheezing. Abdomen soft nontender nondistended positive bowel sounds. Extremities no edema. laboratory and microbiology Laboratory Tests 05/03/25 05:06 Test 05/03/25 05:06 Range/Units Serum Glucose 96 74-106 mg/dL Assessment/Plan I will change Protonix to p.o. b.i.d. and add Carafate. DC the aspirin given patient is already on Eliquis. Once again counseled and educated regarding alcohol and illicit drug use abstinence and seek help with the rehab programs. Monitor her overnight and if she remains stable consider discharge home tomorrow with outpatient follow up GI for her hepatitis treatment. Patient verbalized understanding of this and agree with the care plan as outlined. Problems(with codes): (1) Generalized weakness (2) Fall (3) Transaminitis (4) Substance abuse (5) Elevated troponin (6) Altered mental status (7) Hypothermia Plan discussed with: Patient, Other VJ THOMPSON MD May 03, 2025 14:54
--- NOTE | 2025-05-03 15:15 | DVH ---
ULTRASOUND ABDOMEN, LIMITED RIGHT UPPER QUADRANT: REASON FOR EXAM: elevated LFTs TECHNIQUE: Real-time sector scans in the transverse and longitudinal planes were obtained through the right upper quadrant of the abdomen. FINDINGS: The liver is of normal size and contour. There is hepatopetal flow in the portal vein. There is no intrahepatic biliary ductal dilatation. The common bile duct is not visualized. No gallstones or sludge are identified. There is no gallbladder wall thickening nor pericholecystic fluid. There is no sonographic Kaye's sign. The pancreas is obscured by bowel gas. The right kidney measures 9.2 cm. No hydronephrosis or nephrolithiasis is identified. There is no evidence of right renal mass or cyst. The visualized portions of the abdominal aorta demonstrate no evidence of aneurysmal dilatation. The visualized inferior vena cava is unremarkable. There is no free fluid identified in the right upper quadrant. IMPRESSION: Unremarkable sonographic appearance of the liver.
[2025-05-03 16:14] LABS: INR 1.03 (0.9-1.15); Prothrombin Time 10.9 sec (9.3-11.8)
[2025-05-03] MEDS: PANTOPRAZOLE 40 MG TAB PO SCH (17:41)
[2025-05-03] MEDS: SUCRALFATE 1 GM/10 ML ORAL SUSP PO SCH (21:24)
--- NOTE | 2025-05-03 23:32 | DVHPN2 ---
Progress Note - Dictate Date Seen: May 03, 2025 Medical Necessity Reason Pt with a Central, PICC or Fol: No Subjective Patient was seen and evaluated in follow up.Patient is without any complaints. AST 266, ALT 388. Hepatitis serology panel came back positive for hepatitis-B and hepatitis-C infection. Liver US was unremarkable. Telemetry reviewed. vital signs Vital Sign Date Time Temp Pulse Resp B/P (MAP) Pulse Ox O2 Delivery O2 Flow Rate FiO2 05/03/25 21:00 97.7 96 19 107/71 (83) 91 97.7 05/03/25 08:00 Room Air* 0 N/A Nasal Cannula* Total Intake and Output 05/02/25 05/02/25 05/03/25 15:00 23:00 07:00 Intake Total 900 ml Balance 900 ml medications Current Medications Medications Dose Ordered Sig/Navi Route Start Time Stop Time Status Last Admin Dose Admin Nitroglycerin 0.4 mg Q5MINP PRN SL 05/02/25 00:45 Morphine Sulfate 2 mg Q30M PRN IV 05/02/25 00:45 Hydralazine HCl 10 mg Q6HPRN PRN IV 05/02/25 00:45 05/03/25 16:58 10 MG Ondansetron HCl 4 mg Q6HP PRN IV 05/02/25 00:45 Acetaminophen 650 mg Q6HPRN PRN PO 05/02/25 00:45 05/03/25 08:35 650 MG Losartan Potassium 50 mg BID PO 05/02/25 22:00 05/03/25 09:33 50 MG Metoprolol Succinate 50 mg DAILY PO 05/03/25 10:00 05/03/25 09:34 50 MG Apixaban 5 mg BID PO 05/02/25 22:00 05/03/25 21:23 5 MG Pantoprazole Sodium 40 mg BID@0600,1700 PO 05/03/25 17:00 05/03/25 17:41 40 MG Sucralfate 1 gm TID@0600,1130,2200 PO 05/03/25 22:00 05/03/25 21:24 1 GM Nifedipine 60 mg QPM PO 05/03/25 18:00 05/03/25 17:42 60 MG objective GENERAL: Alert and oriented x 3. No acute distress. Unkept. EYES: PERRL, EOMI. Anicteric. HENT: Moist mucous membranes. LUNGS: Clear to auscultation bilaterally. CARDIOVASCULAR: Regular rate and rhythm. ABDOMEN: Soft, non-tender and non-distended. EXTREMITIES: No edema. NEUROLOGIC: No focal neurological deficits. SKIN: Warm, dry. laboratory and microbiology Laboratory Tests 05/03/25 05:06 Test 05/03/25 05:06 Range/Units Serum Glucose 96 74-106 mg/dL Problem List Paroxysmal atrial fibrillation with rapid ventricular rate, newly diagnosed, now NSR. Cold exposure with hypothermia, resolved. Acute methamphetamine/fentanyl intoxication. NSTEMI, likely type 2 secondary to above. Chronic history of polysubstance abuse. Hypertension, newly diagnosed. Dyslipidemia, newly diagnosed. Elevated LFTs rule out hepatitis. ?Thyroid disease. Assessment/Plan Continued all current supportive medical care. Eliquis. IV Hydralazine for SBP >160. Losartan, Nifedipine. Metoprolol. Morphine for pain management. Nitro SL. GI prophylactics. Additional plan as per the hospital course. Plan discussed with: Patient MEÑO DE JESUS MD May 03, 2025 22:32
[2025-05-04] VITALS (8 sets, daily range): BP systolic 93–149; BP diastolic 54–97; PULSE 60–94; RESP 17–18; TEMP 97.7–98.6; O2SAT 94–100
[2025-05-04 06:28] LABS: Hematocrit 38.9 % (36.0-46.0); Hemoglobin 13.2 g/dL (12.2-16.2); Mean Corpuscular Hemoglobin 28.3 pg (28.0-32.0); Mean Corpuscular Volume 83.7 fL (80.0-100.0); Nucleated Red Blood Cells % 0.1 %
[2025-05-04 06:47] LABS: Albumin 4.1 g/dL (3.2-4.8); Alkaline Phosphatase 115 U/L (46-116); Anion Gap 12 (5-15); BUN/Creatinine Ratio 15.7 (10.0-20.0); Bilirubin, Total 1.0 mg/dL (0.2-1.0); Blood Urea Nitrogen 14 mg/dL (9-23); Calcium 9.3 mg/dL (8.7-10.4); Carbon Dioxide 25 mmol/L (20-31); Chloride 99 mmol/L (98-107); Glucose 106 mg/dL (74-106); Total Protein 6.7 g/dL (5.7-8.2)
[2025-05-04 06:48] LABS: Alanine Aminotransferase 253 U/L (7-40); Potassium 3.3 mmol/L (3.5-5.1); Sodium 136 mmol/L (136-145)
--- NOTE | 2025-05-04 17:47 | DVHPN2 ---
Progress Note - Dictate Date Seen: May 04, 2025 Medical Necessity Reason Pt with a Central, PICC or Fol: No Subjective Patient is clinically stable. LFTs have improved. She is more alert and awake. Mentation is normal. Ambulated with physical therapy and walker today. Feels better. vital signs Vital Sign Date Time Temp Pulse Resp B/P (MAP) Pulse Ox O2 Delivery O2 Flow Rate FiO2 05/04/25 13:00 98.0 60 18 93/54 (67) 97 98.0 05/04/25 08:00 Room Air* 0 21 Total Intake and Output 05/03/25 05/03/25 05/04/25 15:00 23:00 07:00 Intake Total 200 ml 725 ml Balance 200 ml 725 ml medications Current Medications Medications Dose Ordered Sig/Navi Route Start Time Stop Time Status Last Admin Dose Admin Nitroglycerin 0.4 mg Q5MINP PRN SL 05/02/25 00:45 Morphine Sulfate 2 mg Q30M PRN IV 05/02/25 00:45 Hydralazine HCl 10 mg Q6HPRN PRN IV 05/02/25 00:45 05/03/25 16:58 10 MG Ondansetron HCl 4 mg Q6HP PRN IV 05/02/25 00:45 Acetaminophen 650 mg Q6HPRN PRN PO 05/02/25 00:45 05/04/25 10:21 650 MG Losartan Potassium 50 mg BID PO 05/02/25 22:00 05/04/25 10:22 50 MG Metoprolol Succinate 50 mg DAILY PO 05/03/25 10:00 05/04/25 10:22 50 MG Apixaban 5 mg BID PO 05/02/25 22:00 05/04/25 10:22 5 MG Pantoprazole Sodium 40 mg BID@0600,1700 PO 05/03/25 17:00 05/04/25 06:43 40 MG Sucralfate 1 gm TID@0600,1130,2200 PO 05/03/25 22:00 05/04/25 10:22 1 GM Nifedipine 60 mg QPM PO 05/03/25 18:00 05/03/25 17:42 60 MG objective Alert awake oriented x3. HEENT neck supple no JVD. Heart regular rate and rhythm. Lungs fair air movement without wheezing. Abdomen soft nontender nondistended positive bowel sounds. Extremities no edema. laboratory and microbiology Laboratory Tests 05/04/25 04:43 Test 05/04/25 04:43 Range/Units Serum Glucose 106 74-106 mg/dL Assessment/Plan Continue present management as she is on. Patient once again counseled and educated regarding her illicit drug use and advised to seek help with the rehab programs and close follow up with the PCP. Monitor her overnight and if she remains stable discharge plan home tomorrow with home health and PT and medication compliance is also discussed with the her. Discussed care plan with the nurse as well. Problems(with codes): (1) Substance abuse (2) Transaminitis (3) Elevated troponin (4) Hypothermia (5) Altered mental status (6) Generalized weakness (7) Fall Plan discussed with: Patient, Other VJ THOMPSON MD May 04, 2025 17:47
--- NOTE | 2025-05-04 21:13 | DVHPN2 ---
Progress Note - Dictate Date Seen: May 04, 2025 Medical Necessity Reason Pt with a Central, PICC or Fol: No Subjective Patient is clinically stable. LFTs have improved. She is more alert and awake. Mentation is normal. Ambulated with physical therapy and walker today. Feels josi vital signs Vital Sign Date Time Temp Pulse Resp B/P (MAP) Pulse Ox O2 Delivery O2 Flow Rate FiO2 05/04/25 20:51 97.8 82 17 95/71 (79) 94 97.8 05/04/25 08:00 Room Air* 0 21 Total Intake and Output 05/03/25 05/03/25 05/04/25 15:00 23:00 07:00 Intake Total 200 ml 725 ml Balance 200 ml 725 ml medications Current Medications Medications Dose Ordered Sig/Navi Route Start Time Stop Time Status Last Admin Dose Admin Nitroglycerin 0.4 mg Q5MINP PRN SL 05/02/25 00:45 Morphine Sulfate 2 mg Q30M PRN IV 05/02/25 00:45 Hydralazine HCl 10 mg Q6HPRN PRN IV 05/02/25 00:45 05/03/25 16:58 10 MG Ondansetron HCl 4 mg Q6HP PRN IV 05/02/25 00:45 Acetaminophen 650 mg Q6HPRN PRN PO 05/02/25 00:45 05/04/25 10:21 650 MG Losartan Potassium 50 mg BID PO 05/02/25 22:00 05/04/25 10:22 50 MG Metoprolol Succinate 50 mg DAILY PO 05/03/25 10:00 05/04/25 10:22 50 MG Apixaban 5 mg BID PO 05/02/25 22:00 05/04/25 10:22 5 MG Pantoprazole Sodium 40 mg BID@0600,1700 PO 05/03/25 17:00 05/04/25 17:59 40 MG Sucralfate 1 gm TID@0600,1130,2200 PO 05/03/25 22:00 05/04/25 10:22 1 GM Nifedipine 60 mg QPM PO 05/03/25 18:00 05/04/25 17:59 60 MG laboratory and microbiology Laboratory Tests 05/04/25 04:43 Test 05/04/25 04:43 Range/Units Serum Glucose 106 74-106 mg/dL Problems(with codes): (1) Generalized weakness (2) Altered mental status (3) Elevated troponin (4) Transaminitis Prognosis Plan Number enzymes are trending down Hep C antibodies positive Outpatient follow up with GI Services for further management of hep C Plan discussed with: Other (Janene Clements) ABIDA ALMARAZ MD May 04, 2025 21:13
[2025-05-05 01:00] VITALS: BP 114/71; PULSE 96; RESP 18; TEMP 97.7; O2SAT 100
[2025-05-05 05:00] VITALS: BP 99/70; PULSE 91; RESP 17; TEMP 98.1; O2SAT 95
[2025-05-05 08:00] VITALS: PULSE 99; RESP 16; O2SAT 99
[2025-05-05 09:00] VITALS: BP 117/91; PULSE 102; RESP 16; TEMP 98.1; O2SAT 99
[2025-05-05 13:00] VITALS: BP 101/71; PULSE 89; RESP 14; TEMP 98.8; O2SAT 97
[2025-05-05] MEDS ORDERED: PANT40T PO (14:00)
[2025-05-05] MEDS ORDERED: APIX5TAB PO (14:00)
[2025-05-05] MEDS ORDERED: METO-6 PO (14:00)
[2025-05-05] MEDS ORDERED: LOSA-534 PO (14:00)
[2025-05-05] MEDS ORDERED: NIFE1TAB31 PO (14:00)
--- NOTE | 2025-05-05 14:02 | DVHDS2 ---
Discharge Summary Date of Admission May 02, 2025 at 00:34 Date of Discharge: May 05, 2025 Labs/Diagnostic Data: Laboratory Results Test 05/04/25 04:43 05/03/25 15:13 05/03/25 05:06 05/02/25 22:43 White Blood Count 11.4 10^3/uL (4.4-10.8) Red Blood Count 4.65 10^6/uL (4.0-5.20) Hemoglobin 13.2 g/dL (12.2-16.2) Hematocrit 38.9 % (36.0-46.0) Mean Corpuscular Volume 83.7 fL (80.0-100.0) Mean Corpuscular Hemoglobin 28.3 pg (28.0-32.0) Mean Corpuscular Hemoglobin Concent 33.8 g/dL (32.0-36.0) Red Cell Distribution Width 15.5 % (11.8-14.3) Platelet Count 221 10^3/uL (140-450) Mean Platelet Volume 10.2 fL (6.9-10.8) Neutrophils (%) (Auto) 72.2 % (37.0-80.0) Lymphocytes (%) (Auto) 16.1 % (10.0-50.0) Monocytes (%) (Auto) 10.7 % (0.0-12.0) Eosinophils (%) (Auto) 0.6 % (0.0-7.0) Basophils (%) (Auto) 0.4 % (0.0-2.0) Neutrophils # (Auto) 8.2 10 ^3/uL (1.6-8.6) Lymphocytes # (Auto) 1.8 10 ^3/uL (0.4-5.4) Monocytes # (Auto) 1.2 10 ^3/uL (0-1.3) Eosinophils # (Auto) 0.1 10 ^3/uL (0-0.8) Basophils # (Auto) 0 10 ^3/uL (0-0.2) Nucleated Red Blood Cells 0.1 % Sodium Level 136 mmol/L (136-145) Potassium Level 3.3 mmol/L (3.5-5.1) Chloride Level 99 mmol/L (98-107) Carbon Dioxide Level 25 mmol/L (20-31) Anion Gap 12 (5-15) Blood Urea Nitrogen 14 mg/dL (9-23) Creatinine 0.89 mg/dL (0.550-1.02) Glomerular Filtration Rate Calc 71 mL/min (>90) BUN/Creatinine Ratio 15.7 (10.0-20.0) Serum Glucose 106 mg/dL (74-106) Calcium Level 9.3 mg/dL (8.7-10.4) Total Bilirubin 1.0 mg/dL (0.2-1.0) Aspartate Amino Transferase (AST) 95 U/L (13-40) Alanine Aminotransferase (ALT) 253 U/L (7-40) Alkaline Phosphatase 115 U/L (46-116) Total Protein 6.7 g/dL (5.7-8.2) Albumin 4.1 g/dL (3.2-4.8) Prothrombin Time 10.9 sec (9.3-11.8) Prothrombin Time INR 1.03 (0.9-1.15) Ammonia < 10 umol/L (11-32) Troponin I High Sensitivity 106 ng/L (</=34) Test 05/02/25 14:19 05/02/25 07:27 05/01/25 22:01 05/01/25 21:55 Hepatitis A Antibody Total Positive (Negative) Hepatitis B Surface Antigen Negative (Negative) Hepatitis B Surface Antibody Positive (Negative) Hepatitis B Core Total Antibody Positive (Negative) Hepatitis C Antibody Positive (Negative) Hemoglobin A1c 5.5 % A1C (<5.7) Triglycerides Level 73 mg/dL (< 150) Cholesterol Level 216 mg/dL (< 200) LDL Cholesterol 139 mg/dL (< 100) HDL Cholesterol 69 mg/dL (40-59) Thyroxine (T4) 8.1 ug/dL (4.5-12.0) Influenza Type A Antigen Negative (Negative) Influenza Type B Antigen Negative (Negative) SARS-CoV-2 Antigen (Rapid) Negative (NEGATIVE) Urine Color Colorless (Yellow) Urine Clarity Clear (Clear) Urine pH 6.5 (5.0-9.0) Urine Specific [place] 1.008 (1.001-1.035) Urine Protein Trace (Negative) Urine Ketones Negative (Negative) Urine Blood 2+ /uL (Negative) Urine Nitrite Negative (Negative) Urine Bilirubin Negative (Negative) Urine Urobilinogen Normal mg/dL (Negative) Urine Leukocyte Esterase Negative /uL (Negative) Urine RBC 1 /hpf (0 - 4) Urine Microscopic WBC 1 /HPF (0-5) Urine Squamous Epithelial Cells Few /hpf (<5) Urine Bacteria Few /hpf (None Seen) Urine Glucose 2+ mg/dL (Normal) Urine Opiates Screen Neg (NEGATIVE) Urine Fentanyl Screen Pos (NEGATIVE) Urine Barbiturates Screen Neg (NEGATIVE) Urine Phencyclidine Screen Neg (NEGATIVE) Urine Amphetamines Screen Pos (NEGATIVE) Urine Benzodiazepines Screen Neg (NEGATIVE) Urine Cocaine Screen Neg (NEGATIVE) Urine Cannabinoids Screen Neg (NEGATIVE) Test 05/01/25 21:10 05/01/25 20:45 Lactic Acid Level 1.8 mmol/L (0.4-2.0) Magnesium Level 2.0 mg/dL (1.6-2.6) B-Type Natriuretic Peptide 28.90 pg/mL (0-100) Lipase 37 U/L (12-53) Thyroid Stimulating Hormone (TSH) 12.88 uIU/mL (0.55-4.78) Plasma/Serum Blood Alcohol < 3.0 mg/dL (<10) Blood Gas Specimen Type Arterial Blood Gas Sample Site Right radial Blood Gas Patient Temperature 37.0 Arterial Blood Date Drawn [id number] Arterial Blood pH 7.337 (7.350-7.450) Arterial Blood Partial Pressure CO2 44.5 mmHg (32.0-45.0) Arterial Blood Partial Pressure O2 145.8 mmHg (83.0-108.0) Arterial Blood HCO3 23.3 mmol/L (21.0-28.0) Arterial Blood Oxygen Saturation 98.8 % (94.0-98.0) Arterial Blood Base Excess -2.6 mmol/L (-2.0-3.0) Arterial Blood Oxyhemoglobin 96.5 % (94.0-98.0) Arterial Blood Carboxyhemoglobin 1.7 % (0.5-1.5) Arterial Blood Methemoglobin 0.6 % (0.0-1.5) Arterial Blood Deoxyhemoglobin 1.2 % (0.0-5.0) Pankaj Test Yes Blood Gas Total Hemoglobin 13.70 g/dL (12.0-16.0) Blood Gas Liter Flow 15.00 Blood Gas Modality Mask - nrb Blood Gas Spontaneous Rate 18 FiO2 % 100.0 Other Laboratory Tests 05/04/25 04:43 Brief Hx & Hospital Course: This is Nery Rivera a 69-year-old female who was brought in by EMS, she was found outside, abdominal on the ground. Limited HPI due to patient mental status. per ED notes "Patient was hypothermic on arrival to the emergency department in AFib with RVR. Heart rate improved spontaneously with rewarming. CT head negative for acute process." Patient currently alert and oriented x2, reports left sided chest pain with shortness of breath. Patient denies any substance use, reports she doesn't remember what happened. Patient denies headache, dizziness, fevers, chills. Patient admitted for further evaluation. She is admitted and evaluated by experimental mechanic spacecraft and service vehicle operator. Patient noted to have non ST-elevation UT as well as hepatitis C infection and polysubstance abuse. Patient underwent counseling education regarding abstinence from illicit drugs including methamphetamines. Advised to seek help with the drug rehab programs. While in the hospital patient treated appropriately for her acute issues. Her symptoms resolved. She is back to normal baseline status. She is getting out of bed ambulating with a walker. She is feeling better. Therefore it is felt she could be safely discharged home. I have discussed with patient regarding her appetite is infection in the importance of follow up with the PCP and referral to service vehicle operator for treatment. She is also advised to continue the medications as she is prescribed and follow up with the PCP and experimental mechanic spacecraft as well. Patient verbalized understanding over hospital diagnosis, treatment she received, discharge medications, discharge instructions and agree with the follow up plan of care as outlined Operations or Procedures APPROVED REPORT EXAM: Two-dimensional and M-mode echocardiogram with Doppler and color Doppler. Blood Pressure: 177/117 mmHg INDICATION ELEVATED TROPS RISK FACTORS Height: 5'2, Weight: 150 DIMENSIONS LVDd 3.9 (3.8-5.7cm) LA (2D) 4.3 (1.9-4.0cm) Aortic Root 3.5 (2.0- 3.7cm) LVDs 2.9 (2.5-4.0cm) LA (MM) (1.9-4.0cm) Aortic Cusp Exc 1.8 (1.5- 2.0cm) EF (%) 55.0 (55-70%) Rt. Atrium 4.0 (1.9-4.0cm) Asc. Aorta 3.7 cm IVSd 1.2 (0.7-1.1cm) RV (D) 4.2 (1.8-2.4cm) PWd 1.1 (0.7-1.1cm) Mitral Valve Mitral Mitral Stenosis E wave 0.75m/s MV Mean GR. mmHg A wave 1.20m/s MV Peak GR. mmHg E/A ratio 0.6 2D MVA cm2 DECEL Time 177ms PRESS 1/2 Time ms Aortic Valve Aortic Valve Aortic Stenosis V1 1.02m/s AO Mean GR. 6mmHg V2 1.51m/s AO Peak GR. 10mmHg LVOT Diameter 2.0 (1.8-2.4cm) Doppler ARTHUR 2.12cm2 Pulmonic Valve V2 1.05m/s Other Information Technically limited study due to S/P CPR Conclusion MILD LVH AND MILD LV DIASTOLIC DYSFUNCTION' LV EF IS 65% MODERATELY DILATED RV AND RA NORMAL VALVES NO EFFUSION SIGNED BY: MEÑO DE JESUS MD SIGNED DATE/TIME: 05/02/252013 Condition at Discharge: Stable Final Diagnosis/Problems List Hypertension, polysubstance abuse, atrial fibrillation, hepatitis-C infection, noncompliance/nonadherence, general deconditioning Discharge Disposition: Home Discharge Instruct/Medications Diet: Consistent carbohydrate, Cardiac 2g Na,low cholest Activity: No Restrictions, As Tolerated Follow Up/Referral: Primary care physician next week and referral to service vehicle operator for hepatitis-C treatment and Cardiology for management of atrial fibrillation and hypertension Medications: Take all the medications as prescribed per discharge med reconciliation list Scheduled Apixaban Base (Eliquis), 5 MG PO BID Losartan Potassium (Losartan Potassium), 50 MG PO BID Metoprolol Succinate (Toprol Xl), 50 MG PO DAILY Nifedipine (Nifedipine Er), 60 MG PO QPM Pantoprazole Sodium Sesquihydr (Pantoprazole Sodium), 40 MG PO BID Discontinued Medications Acetaminophen (Tylenol Extra Strength), 1,000 MG PO Q6HP PRN Ibuprofen (Ibuprofen), 1 TAB PO Q8HP PRN Discharge Statement: "Patient was advised to return to the ER or call 911 if any headaches, dizziness, shortness of breath, chest pain, abdominal pain, bleeding, fevers, or worsening of medical condition. Patient was counseled about treatment plan, medications, possible side effects, patientverbalized understanding. All questions were answered to the best of my ability. This discharge took greater then 30 minutes in planning, reviewing documentation, counseling the patient, and discussing with other team members." ASSESSMENT ASSESSMENT Assessment Hypertension, polysubstance abuse, atrial fibrillation, hepatitis-C infection, noncompliance/nonadherence, general deconditioning VJ THOMPSON MD May 05, 2025 14:02
[2025-05-05 16:29] VITALS: BP 101/71; PULSE 89; RESP 14; TEMP 98.8; O2SAT 97
--- NOTE | 2025-05-05 16:53 | DVHPN2 ---
Progress Note - Dictate Date Seen: May 05, 2025 Medical Necessity Reason Pt with a Central, PICC or Fol: No Subjective Patient is clinically stable. LFTs have improved. She is more alert and awake. Mentation is normal. Tolerating diet Ambulated with physical therapy and walker today. Feels better Patient stated she had been in [facility] twice and one time she had been told she had hepatitis-C but this was not confirmed She never followed up as an outpatient for the same vital signs Vital Sign Date Time Temp Pulse Resp B/P (MAP) Pulse Ox O2 Delivery O2 Flow Rate FiO2 05/05/25 16:29 98.8 89 14 97 05/05/25 13:00 101/71 (81) 05/05/25 08:00 Room Air* 0 21 Total Intake and Output 05/04/25 05/04/25 05/05/25 15:00 23:00 07:00 Intake Total 790 ml 900 ml Balance 790 ml 900 ml medications Current Medications Medications Dose Ordered Sig/Navi Route Start Time Stop Time Status Last Admin Dose Admin Nitroglycerin 0.4 mg Q5MINP PRN SL 05/02/25 00:45 Morphine Sulfate 2 mg Q30M PRN IV 05/02/25 00:45 Hydralazine HCl 10 mg Q6HPRN PRN IV 05/02/25 00:45 05/03/25 16:58 10 MG Ondansetron HCl 4 mg Q6HP PRN IV 05/02/25 00:45 Acetaminophen 650 mg Q6HPRN PRN PO 05/02/25 00:45 05/05/25 09:36 650 MG Losartan Potassium 50 mg BID PO 05/02/25 22:00 05/04/25 10:22 50 MG Metoprolol Succinate 50 mg DAILY PO 05/03/25 10:00 05/05/25 09:36 50 MG Apixaban 5 mg BID PO 05/02/25 22:00 05/05/25 09:36 5 MG Pantoprazole Sodium 40 mg BID@0600,1700 PO 05/03/25 17:00 05/05/25 05:15 40 MG Sucralfate 1 gm TID@0600,1130,2200 PO 05/03/25 22:00 05/05/25 11:38 1 GM Nifedipine 60 mg QPM PO 05/03/25 18:00 05/04/25 17:59 60 MG objective General: NAD, AAOX3 Chest: lung shea clear to auscultation Heart: RRR, no murmur Abdomen: non-distended, no tenderness to palpation, +BS laboratory and microbiology Laboratory Tests 05/04/25 04:43 Test 05/04/25 04:43 Range/Units Serum Glucose 106 74-106 mg/dL Problems(with codes): (1) Fall (2) Generalized weakness (3) Altered mental status (4) Hypothermia (5) Elevated troponin (6) Substance abuse (7) Transaminitis Prognosis Plan Patient notified of hep C antibody being positive She was given my contact information to follow up with my office in 2-4 weeks after discharge We will work her up for her hep C as an outpatient and provide her adequate treatment if needed Discharge planning is in progress Plan discussed with: Patient, Other ABIDA ALMARAZ MD May 05, 2025 16:53
--- NOTE | 2025-05-05 19:22 | DVHPN2 ---
Progress Note - Dictate Date Seen: May 04, 2025 Medical Necessity Reason Pt with a Central, PICC or Fol: No Subjective Patient was seen and evaluated in follow up. Patient reports feeling better today. Mentation improved. Patient is working with PT. Telemetry reviewed. vital signs Vital Sign Date Time Temp Pulse Resp B/P (MAP) Pulse Ox O2 Delivery O2 Flow Rate FiO2 05/05/25 13:00 98.8 89 14 101/71 (81) 97 98.8 05/05/25 08:00 Room Air* 0 21 Total Intake and Output 05/04/25 05/04/25 05/05/25 15:00 23:00 07:00 Intake Total 790 ml 900 ml Balance 790 ml 900 ml medications Current Medications Medications Dose Ordered Sig/Navi Route Start Time Stop Time Status Last Admin Dose Admin Nitroglycerin 0.4 mg Q5MINP PRN SL 05/02/25 00:45 Morphine Sulfate 2 mg Q30M PRN IV 05/02/25 00:45 Hydralazine HCl 10 mg Q6HPRN PRN IV 05/02/25 00:45 05/03/25 16:58 10 MG Ondansetron HCl 4 mg Q6HP PRN IV 05/02/25 00:45 Acetaminophen 650 mg Q6HPRN PRN PO 05/02/25 00:45 05/05/25 09:36 650 MG Losartan Potassium 50 mg BID PO 05/02/25 22:00 05/04/25 10:22 50 MG Metoprolol Succinate 50 mg DAILY PO 05/03/25 10:00 05/05/25 09:36 50 MG Apixaban 5 mg BID PO 05/02/25 22:00 05/05/25 09:36 5 MG Pantoprazole Sodium 40 mg BID@0600,1700 PO 05/03/25 17:00 05/05/25 05:15 40 MG Sucralfate 1 gm TID@0600,1130,2200 PO 05/03/25 22:00 05/05/25 11:38 1 GM Nifedipine 60 mg QPM PO 05/03/25 18:00 05/04/25 17:59 60 MG objective GENERAL: Alert and oriented x 3. No acute distress. Unkept. EYES: PERRL, EOMI. Anicteric. HENT: Moist mucous membranes. LUNGS: Clear to auscultation bilaterally. CARDIOVASCULAR: Regular rate and rhythm. ABDOMEN: Soft, non-tender and non-distended. EXTREMITIES: No edema. NEUROLOGIC: No focal neurological deficits. SKIN: Warm, dry. laboratory and microbiology Laboratory Tests 05/04/25 04:43 Test 05/04/25 04:43 Range/Units Serum Glucose 106 74-106 mg/dL Problem List Paroxysmal atrial fibrillation with rapid ventricular rate, newly diagnosed, now NSR. Cold exposure with hypothermia, resolved. Acute methamphetamine/fentanyl intoxication. NSTEMI, likely type 2 secondary to above. Chronic history of polysubstance abuse. Hypertension, newly diagnosed. Dyslipidemia, newly diagnosed. Elevated LFTs rule out hepatitis. ?Thyroid disease. Assessment/Plan Continued all current supportive medical care. Eliquis. IV Hydralazine for SBP >160. Losartan, Nifedipine. Metoprolol. Morphine for pain management. Nitro SL. GI prophylactics. Additional plan as per the hospital course. Plan discussed with: Patient MEÑO DE JESUS MD May 05, 2025 14:41
--- NOTE | 2025-05-05 19:29 | DVHPN2 ---
Progress Note - Dictate Date Seen: May 05, 2025 Medical Necessity Reason Pt with a Central, PICC or Fol: No Subjective Patient was seen and evaluated in follow up. Patient has no new complaints at this time. Patient denies any cardiac symptoms. Patient is cardiac stable for discharge. Telemetry reviewed. vital signs Vital Sign Date Time Temp Pulse Resp B/P (MAP) Pulse Ox O2 Delivery O2 Flow Rate FiO2 05/05/25 16:29 98.8 89 14 97 05/05/25 13:00 101/71 (81) 05/05/25 08:00 Room Air* 0 21 Total Intake and Output 05/04/25 05/04/25 05/05/25 15:00 23:00 07:00 Intake Total 790 ml 900 ml Balance 790 ml 900 ml objective GENERAL: Alert and oriented x 3. No acute distress. Unkept. EYES: PERRL, EOMI. Anicteric. HENT: Moist mucous membranes. LUNGS: Clear to auscultation bilaterally. CARDIOVASCULAR: Regular rate and rhythm. ABDOMEN: Soft, non-tender and non-distended. EXTREMITIES: No edema. NEUROLOGIC: No focal neurological deficits. SKIN: Warm, dry. laboratory and microbiology Laboratory Tests 05/04/25 04:43 Test 05/04/25 04:43 Range/Units Serum Glucose 106 74-106 mg/dL Problem List Paroxysmal atrial fibrillation with rapid ventricular rate, newly diagnosed, now NSR. Cold exposure with hypothermia, resolved. Acute methamphetamine/fentanyl intoxication. NSTEMI, likely type 2 secondary to above. Chronic history of polysubstance abuse. Hypertension, newly diagnosed. Dyslipidemia, newly diagnosed. Elevated LFTs rule out hepatitis. ?Thyroid disease. Assessment/Plan Continued all current supportive medical care. Eliquis. IV Hydralazine for SBP >160. Losartan, Nifedipine. Metoprolol. Morphine for pain management. Nitro SL. GI prophylactics. Additional plan as per the hospital course. Plan discussed with: Patient MEÑO DE JESUS MD May 05, 2025 19:29
== END 2025-05-05 17:07 | disposition home health service (06) | DRG 922 ==
LOC: ER 20:15 → EDBD 20:15 → OVERFLOW 05-02 00:34 → TELE-WESTW 05-02 05:25
PROVIDERS: ADMIT Internal Medicine; ATTEND Internal Medicine
DX: T68.XXXA Hypothermia, initial encounter (principal); G92.8 Other toxic encephalopathy; I21.A1 Myocardial infarction type 2; B19.10 Unspecified viral hepatitis B without hepatic coma; I10 Essential (primary) hypertension; F15.129 Other stimulant abuse with intoxication, unspecified; B19.20 Unspecified viral hepatitis C without hepatic coma; I48.0 Paroxysmal atrial fibrillation; Z20.822 Contact with and (suspected) exposure to COVID-19; E78.5 Hyperlipidemia, unspecified; M81.0 Age-related osteoporosis without current pathological fracture; E07.9 Disorder of thyroid, unspecified; F17.210 Nicotine dependence, cigarettes, uncomplicated; Z79.1 Long term (current) use of non-steroidal anti-inflammatories (NSAID); Z96.642 Presence of left artificial hip joint; Z85.810 Personal history of malignant neoplasm of tongue; Z79.899 Other long term (current) drug therapy; Z91.199 Patient's noncompliance with other medical treatment and regimen due to unspecified reason; Z90.81 Acquired absence of spleen; X31.XXXA Exposure to excessive natural cold, initial encounter; T40.415A Adverse effect of fentanyl or fentanyl analogs, initial encounter; Y92.89 Other specified places as the place of occurrence of the external cause; T43.655A Adverse effect of methamphetamines, initial encounter
CPT/HCPCS: 36415; 36600; 70450; 71045; 76705; 80053; 80061; 80307; 80320; 81001; 82140; 82805; 83036; 83605; 83690; 83735; 83880; 84436; 84443; 84484; 85025; 85027; 85610; 86038; 86704; 86706; 86708; 86803; 87040; 87340; 87426; 87804; 93005; 93306; 96360; 96361; 97110; 97116; 97163; 97530; G0378; J2470